=== PATIENT | male | born 1940 | race Caucasian/White ===

== ENCOUNTER 2016-10-08 11:59 | Outpatient (CLI) | payer OTHER ==
[2016-10-07 13:31] LABS: % IMMATURE GRANULOCYTES 6.6 % (0.0-1.1); ABSOLUTE IMMATURE GRANULOCYTES 0.66 10^3/uL (0-0.10); HEMATOCRIT 22.2 % (40.0-51.0); HEMOGLOBIN 7.9 g/dL (13.7-17.5); MEAN CELL HEMOGLOBIN 30.9 pg (27.9-34.1); MEAN CELL HEMOGLOBIN CONC. 35.6 g/dL (32.4-36.7); MEAN CELL VOLUME 86.7 fL (81.5-99.8); MEAN PLATELET VOLUME 9.8 fL (8.7-11.7); RED BLOOD CELL COUNT 2.56 10^6/uL (4.40-6.38)
[2016-10-07 13:55] LABS: ALANINE AMINOTRANSFERASE 42 IU/L (21-72); ALBUMIN 2.5 g/dL (3.5-5.0); ALKALINE PHOSPHATASE 94 IU/L (38-126); ANION GAP 9 mEq/L (8-16); ASPARTATE AMINOTRANSFERASE 20 IU/L (17-59); BILIRUBIN,TOTAL 0.4 mg/dL (0.1-1.4); CALCIUM 7.8 mg/dL (8.5-10.4); CARBON DIOXIDE 27 mEq/l (22-31); CHLORIDE 95 mEq/L (97-110); CREATININE 0.6 mg/dL (0.7-1.3); GLOMERULAR FILTRATION RATE > 60; GLUCOSE 180 mg/dL (70-100); POTASSIUM 4.2 mEq/L (3.5-5.2); SODIUM 131 mEq/L (134-144); TOTAL PROTEIN 4.9 g/dL (6.3-8.2)
[2016-10-08] MEDS ORDERED: ACETAMINOPHEN 325 MG TAB PO ONE (12:30)
== END 2016-10-08 16:15 | disposition home or self-care (01) ==
LOC: FOBOP 11:59
PROVIDERS: ATTEND Internal Medicine Hematology & Oncology
PROC: 30233N1 Transfusion of Nonautologous Red Blood Cells into Peripheral Vein, Percutaneous Approach (ICD-10-PCS; principal; 2016-10-08)
DX: C76.0 Malignant neoplasm of head, face and neck (principal)
CPT/HCPCS: 36430; P9016

== ENCOUNTER 2016-10-14 13:03 | Inpatient (IN) | payer OTHER ==
[2016-10-14] MEDS ORDERED: ONDANSETRON DISINTEGRATING 4 MG TAB PO PRN ×2 (18:29→18:36)
[2016-10-14] MEDS ORDERED: BIOTENE DRY MOUTH MOUTHWASH 237 ML BTL MM PRN (18:29)
[2016-10-14] MEDS ORDERED: PROCHLORPERAZINE MALEATE 10 MG TAB TUBE PRN (18:29)
[2016-10-14] MEDS ORDERED: VANCOMYCIN HCL/NORMAL SALINE 250 ML IV SCH (18:30)
[2016-10-14] MEDS ORDERED: ACETAMINOPHEN 325 MG TAB PO PRN (18:36)
[2016-10-14] MEDS ORDERED: VANCOMYCIN 1 GM/NS 250 ML BAG IV ONE (18:42)
[2016-10-14] MEDS ORDERED: IOPAMIDOL (ISOVUE-300) 100 ML BTL IV ONE (18:56)
[2016-10-14] MEDS ORDERED: OXYCODONE TUBE PRN (19:00)
[2016-10-14] MEDS: NS 1,000 ML IV SCH (19:35)
[2016-10-14 19:40] LABS: ADD DIFF? YES; ADD MORPH? YES; ATYPICAL LYMPHOCYTE FLAG 0 (0-99); FRAGMENT RBC FLAG 0 (0-99); LIPEMIA HEMOLYSIS FLAG 90 (0-99); MEAN CELL HEMOGLOBIN 29.8 pg (27.9-34.1); MEAN CELL HEMOGLOBIN CONCENTR. 35.5 g/dL (32.4-36.7); MEAN CELL VOLUME 83.8 fL (81.5-99.8); MEAN PLATELET VOLUME 11.5 fL (8.7-11.7); PLATELET CLUMPS FLAG 0 (0-99); RED BLOOD CELL COUNT 1.98 10^6/uL (4.40-6.38); RED CELL DISTRIBUTION WIDTH 13.3 % (11.5-15.2)
[2016-10-14 19:45] LABS: ALANINE AMINOTRANSFERASE 39 IU/L (21-72); ALBUMIN 2.5 g/dL (3.5-5.0); ALKALINE PHOSPHATASE 96 IU/L (38-126); ANION GAP 8 mEq/L (8-16); ASPARTATE AMINOTRANSFERASE 15 IU/L (17-59); BILIRUBIN,TOTAL 0.6 mg/dL (0.1-1.4); CALCIUM 7.8 mg/dL (8.5-10.4); CARBON DIOXIDE 28 mEq/l (22-31); CHLORIDE 95 mEq/L (97-110); CREATININE 0.7 mg/dL (0.7-1.3); GLOMERULAR FILTRATION RATE > 60; GLUCOSE 101 mg/dL (70-100); POTASSIUM 3.7 mEq/L (3.5-5.2); SODIUM 131 mEq/L (134-144)
[2016-10-14 19:51] LABS: LEFT SHIFT FLG 0 (0-99)
[2016-10-14 19:52] LABS: HEMATOCRIT 16.6 % (40.0-51.0); HEMOGLOBIN 5.9 g/dL (13.7-17.5)
[2016-10-14 19:53] LABS: PLATELET COUNT 22 10^3/uL (150-400)
--- NOTE | 2016-10-14 20:10 | GHP ---
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 He presents from oncology clinic today with neutropenia and general malaise. His oncology history is as follows: In June of 2016, he had an area of atypical mucosa that ultim ately was biopsied and came back as cancer. He had initial cancer surgery by Dr. Steve Miller at [facility]. Margins were thin, so he returned shortly thereafter for a 2nd surgery. He underwent c isplatin and Taxol chemotherapy, as well as radiation. On August 25, he presented to this hospital with neck swelling and was found to have an abscess. He was transferred to [facility], where he remained in the hospital for a month. He had 1 absce ss drainage surgery. He did not have positive blood cultures, but received prolonged antibiotics for what sounds like staph, Klebsiella and Pseudomonas. He was seen here in our clinic last week and had a wound swab which grew out Pseudomonas, Staph aureu s, and Klebsiella. When I speak with them, they noticed some increased sputum from his trach. He spends much of his day s in bed, but he is able to walk with a walker, sometimes without. He is getting tube feeds at night . He has not had diarrhea. He has had a bit of vomiting. I had a brief code status discussion with the family. He remains full code. They pre-contemplated t o intubate. Part of this is somewhat of a nonissue given his trach status, would be fairly easy to h ook him up to a ventilator. I did discuss the case with Dr. Jason Regalado, as well as Dr. Doris Doty. REVIEW OF SYSTEMS: Complete 10-point review of systems conducted, negative except as noted in the HP I. Head and neck cancer as above, hyperlipidemia. ALLERGIES: No known drug allergies. MEDICATIONS: Oxycodone, guaifenesin, simvastatin, scopolamine patch, prochlorperazine, ondansetron, Magic mouthwash, Biotene mouthwash, gabapentin, esomeprazole, and acyclovir. SOCIAL HISTORY: Lifelong no tobacco. Minimal alcohol. 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 FAMILY HISTORY: His daughter is healthy, at the bedside. PHYSICAL EXAMINATION: VITAL SIGNS: Blood pressure 124/50, pulse 102, breathing 14 times a minute, 9 8% on room air. Temp 36.8. GENERAL: Chronically ill-appearing. HEENT: Head and neck: He has jennifer martinez on the left side. He has 2 draining fistulas with muna in place. It is malodorous with a mild a mount of purulence. There is no fluctuance. His oropharynx is clear. His trach is clean, dry and i ntact. NECK: Supple. HEART: S1, S2, without tachycardia. LUNGS: Rhonchorous bilaterally. ABDOM EN: Soft, nontender, nondistended. LOWER EXTREMITIES: Without edema. Calves nontender. SKIN: Wi thout rash. NEUROLOGIC: Nonfocal. LABORATORY DATA: Today: Sodium 135, potassium 3.9, chloride 96, bicarb 22, BUN 30, creatinine 0.7, glucose 208. White count is 0.78, hematocrit 21.8, platelets are 30,000. His ANC is about 25. There is no imaging. I have reviewed his past records. ASSESSMENT/PLAN: This is a 76-year-old gentleman with head and neck cancer, complex neck anatomy, ne utropenia, purulent drainage. 1. Purulent drainage of his neck. This is concerning for recurrent infection. He has micro that joy s grown out Pseudomonas, MSSA, and Klebsiella. The Pseudomonas has an extended resistance pattern wh ere it is really only sensitive to aminoglycosides and levofloxacin. It is not clear if this represe nts colonization given his prolonged hospitalization report or versus infection. To that end, I will scan his neck. I will start him on meropenem and levofloxacin. ID will see him in the morning. Th is does not appear to be a surgical issue at this time; however, I will follow up on a CT. 2. Question pneumonia. The patient has rhonchorous breath sounds with increased sputum. Certainly, any pathogen will be covered by levofloxacin and meropenem. We will image his chest while we are im aging his neck. 3. Neutropenia. The patient will be on neutropenic precautions. He received G-CSF at the discretio n of Dr. Regalado. We will trend. 4. Anemia. This is new. We will transfuse him 1 unit of packed cells. 5. Prophylaxis. SCDs. Pharmacologic prophylaxis contraindicated by his thrombocytopenia. 6. Code: Full. 7. Cancer. There is a question of whether or not the patient would be appropriate for radiation the rapy tomorrow. It does not seem appropriate to me, but I will discuss this with my oncology colleagu malathi. 8. Disposition: Inpatient status. /[id number]/MODL
[2016-10-14 21:06] LABS: PLATELET ESTIMATE DECREASED (ADEQ)
[2016-10-14 21:07] LABS: HYPOCHROMIA 2+
[2016-10-14 21:09] LABS: ADD SCAN? NO
--- NOTE | 2016-10-14 21:16 | CT ---
CT Chest, With Contrast, at 2017 hours Indication: 76-year-old man with neutropenia and rhonchorous breathing. Technique: 5-mm thick collimated slices were obtained through the chest following uneventful adminis tration of 80 mL Isovue-300. Sagittal multiplanar reconstructions were performed of the thoracic spi ne. Dose reduction techniques were utilized. COMPARISON: CT chest dated October 03, 2012. Findings: A tracheostomy tube is well positioned at the suprasternal notch. No fluid collection or abscess around the tracheostomy tube. The airway is clear except for diffuse mild peribronchial thic kening throughout the mid and lower lung zones. No endobronchial lesion or central mucous plugging. The lungs are hypoventilated, with bibasilar subpleural reticular abnormality, which likely represent s a component of atelectasis. No confluent airspace consolidation or edema. The heart size is normal. No pericardial or pleural effusion. A right chest wall port is present, w ith the tip in the high right atrium. The inferior aspect of the superior vena cava is narrowed, how ever, there does not appear to be a stricture or thrombus along the course of the catheter. The thor acic aorta is normal caliber, with mild calcified plaque. 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 No lymphadenopathy or mass throughout the axilla, mediastinum, pulmonary cherelle, or imaged portion of [facility] upper abdomen. A gastrostomy tube is well situated within the lumen of the stomach. No fluid col lection or inflammation along the course of the gastrostomy tube. A benign 5-cm cyst emanating off [facility] superior pole of the left kidney is unchanged. The paraspinal soft tissue planes are normal. No evidence of diskitis. IMPRESSION: 1. No pneumonia or evidence of aspiration. 2. Bibasilar atelectasis and airways disease. No central mucous plugging. 3. Well-positioned tracheostomy tube. No abscess or inflammation along the tracheostomy tube. 4. No pleural effusion or empyema. Comment: The results were conveyed to Dr. Casey Osborn shortly after study completion. E:RH/amm
--- NOTE | 2016-10-14 21:20 | GHP ---
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 HISTORY OF PRESENT ILLNESS: The patient is a 76-year-old patient of Dr. Rashmi figueroa who was admitted today with neutropenic fever and purulent drainage from his left neck in the setting of undergoing treatment for alveolar ridge squamous cell carcinoma. The patient's history dates back to the fall when he was found to have a mass on the alveolar ridge and the posterior left mandibular molar area. In the time from when he was seen by ENT and scheduled for surgery, the mass increased in size. He was taken to the operating room by Dr. Rodriguez on and underwent resection of the left retromolar trigone, resection of the left posterior alveolus, resection of the left buccal mucosa, resection of the left floor of the mouth and also underwent a left partial upper 2/3 mandibulectomy. The tumor was much larger than initially appreciated. A number of teeth were pulled. Pathology showed a 3.2-cm moderately differentiated squamous cell carcinoma with extension to underlying bone and bone marrow space. Margins were negative but very close on the anterior and posterior aspects of the bone with definite bone marrow invasion. Multiple margins were quite close at 1 to 2 mm. Sixty-two lymph nodes were sampled and were negative. Because of the close margins, he was seen again by Dr. Martin Patel and a secondary surgery was performed on 07/25/2016. This entailed a left osteocutaneous fibula free flap, a right neck dissection, a radical resection of the left mandibular body with reconstruction of the mandibular segments with a transosteal bone plate and 4 dental extractions. There was also an incision and drainage of a left facial abscess. Pathology from this procedure showed squamous cell carcinoma in the soft tissue of the neck and microscopic sulci were identified in 6 out of the 19 submitted areas. Additional squamous cell carcinoma was noted in the mandible diffusely involving the marrow space. Final margins were felt to be negative. Three additional lymph nodes were sampled and were negative. He had a feeding tube placed. More recently, the patient had a prolonged hospitalization at [facility]. He had developed rapid increasing swelling over the neck and there was concern of an abscess. This area was explored again by Dr. Rodriguez. However, it was felt that the swelling was primarily due to recurrent and progressive tumor and deep biopsies were positive for squamous cell carcinoma. He received one cycle of carboplatin and Taxol in early August and this was complicated by neutropenic fever. He was growing Pseudomonas from his tracheostomy. He received one dose of weekly carboplatin and Taxol on 09/18/2016 and tolerated that relatively well. However, CT scan again appeared to identify that the tumor was increasing in size. He had a tracheostomy placed as well as a port. More recently, the patient was started on palliative radiation with concurrent weekly cisplatin. He has received 9 radiation treatments and 2 doses of weekly cisplatin. He was noted to have purulent drainage from his REX site at the angle just inferior to the left ear and also developed a spontaneous purulent drainage from the left lower jaw. He was seen in the wound clinic yesterday by Dr. Collins and has been having a wound care nurse out to the house regularly. He has been requiring intermittent transfusions. Culture of the tracheostomy secretions from the grew Pseudomonas and methicillin-sensitive staph aureus. Today in the office, the patient was febrile at 99.1. White blood cell count was 0.78 with a hematocrit of 21.8 and a platelet count of 30,000. Metabolic panel was notable for albumin of 3, creatinine of 0.7, glucose of 208. O2 saturation was 88%. The patient is admitted for further evaluation of neutropenic fever in the setting of purulent drainage from his operative sites. 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 He is a nonsmoker. FAMILY HISTORY: Noncontributory. REVIEW OF SYSTEMS: A 10-point review of systems is negative other than HPI. The patient denies any pain and currently takes oxycodone 5 mg twice a day. PHYSICAL EXAMINATION: GENERAL: He is an elderly, fairly comfortable appearing man lying in bed with his eyes closed. HEENT: He has an obvious deformity of his left jaw. Pupils are equal. Sclerae anicteric. He has a tracheostomy with purulent drainage. The left mandible is firm and indurated, slightly erythematous. There is a wick in a draining site below the ear and in the anterior aspect of the jaw. LUNGS: Clear anteriorly. HEART: Regular rate. ABDOMEN: Soft, nontender with G-tube. There is some mild erythema around the G -tube site but no obvious infection. No cervical adenopathy or axillary adenopathy or supraclavicular adenopathy. LABORATORY DATA: See HPI. 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 He has undergone extensive surgical resection, with tumor progression in a short period of time. He is currently undergoing concurrent radiation with cisplatin and is now being admitted with neutropenic fever and increasing drainage from wound sites at the left jaw. Chemotherapy will be held and will start the patient on Neupogen. Will discuss whether or not to continue with radiation tomorrow morning with Dr. Pak. Infectious Disease will be seeing the patient in the consultation. He is getting a CT scan of the neck and chest. The Pseudomonas may represent just colonization of the tracheostomy but could also be contributing to infection either in the jaw and/or possibly pneumonia. We will continue to follow along with you. /[id number]/MODL MTDD
[2016-10-14] MEDS ORDERED: ACETAMINOPHEN 500 MG TAB TUBE ONE (21:45)
[2016-10-14] MEDS: MEROPENEM 1 GM in NS 100 ML IV SCH (21:55)
--- NOTE | 2016-10-14 21:56 | CT ---
CT Neck, With IV Contrast, at 2017 hours INDICATION: Neutropenia and chronic draining wound from neck. Known head and neck cancer, with júnior nstruction of the mandible. TECHNIQUE: The neck was scanned with 2.5-mm thick helically acquired slices following uneventful int ravenous administration of 80 mL of Isovue-300. The data was reconstructed in soft tissue and bone a lgorithm in the axial and coronal planes. Dose reduction techniques were utilized. COMPARISON: CT of the neck, with contrast, dated August 25, 2016. FINDINGS: A deep ulcer posterior to the left angle of the mandible communicates with a fluid and gas filled rim-enhancing fluid collection, which tracks anteriorly and medially along the deep inferomed ial aspect of the reconstructed body of the left side of the mandible. The fluid collection, best de monstrated on images #82 through 91, measures 4 cm medial to lateral x 1 x 1 cm in diameter. A second visible sinus tract enters the skin along the left body of the mandible (image #139 of serie s #13) and tracks medially deep to the plate and screws and then communicates to the oropharynx as a small gas-filled tract evident on images #109 through 125 of series #13. The plate along the left mandibular body is loosening and a gap between the plate and mandible measur es between 1 and 4 mm. The gas-filled sinus tract courses deep to the plate. The angle of the partha ble has undergone permeative destruction since August 2016 and a screw in the angle of the mandible (image #109 of series #13) is not seated in bone. The left masseter muscle and medial pterygoid muscle are markedly asymmetrically enlarged relative to the contralateral muscle groups. It is unclear whether this represents infiltrative neoplasm or jennifer ma and inflammation secondary to an underlying infectious process. The lobulated mass along the supe rficial and deep aspect of the left mandibular body is no longer evident and may have been surgically resected. The midline and right side of the mandibular reconstruction is otherwise well seated. Extensive kecia a is present superficial and deep to the platysma muscle in the subgenu and submandibular space. The parapharyngeal spaces are relatively well preserved. No deep abscess or parapharyngeal abscess. The epiglottis is normal. The internal jugular veins are patent. The imaged portion of the brain is normal, with no enhancing intracranial lesion. IMPRESSION: 1. Abscess versus liquefactive necrosis along the undersurface of the left body of the mandible comm unicates with an ulcer along the posterior surface of the left angle of the mandible. 2. A second sinus tract communicates between the oropharynx and cutaneous surface along the left bod y of the mandible. The cutaneous tract is filled with gas and runs deep to the hardware along the le ft mandibular body. 3. Osteomyelitis versus malignant destruction of the angle of the mandible. 4. Breakdown and loosening of the hardware along the left mandibular body and ramus. Comment: Results were discussed with Dr. Casey Osborn at 9:15 p.m. on October 14, 2016.
[2016-10-14] MEDS: GABAPENTIN 100 MG CAP TUBE SCH (22:03)
[2016-10-14] MEDS: FILGRASTIM-SNDZ 300 MCG/0.5 ML SYR SC SCH (22:03)
[2016-10-14] MEDS: ACYCLOVIR 200 MG CAP TUBE SCH (22:03)
[2016-10-14] MEDS: GUAIFENESIN/DM 10 ML UDCUP TUBE SCH (22:03)
[2016-10-14] MEDS ORDERED: [UNRECOGNIZED DRUG - OTHER] MM PRN (22:45)
[2016-10-14] MEDS: oxyCODONE ORAL SOLUTION 10 MG/0.5 ML UDSYR TUBE PRN (22:52)
[2016-10-14 23:10] LABS: SCAN POSITIVE
[2016-10-15] MEDS: MEROPENEM 1 GM in NS 100 ML IV SCH ×3 (05:35→20:22)
[2016-10-15 06:10] LABS: ATYPICAL LYMPHOCYTE FLAG 0 (0-99); FRAGMENT RBC FLAG 0 (0-99); LIPEMIA HEMOLYSIS FLAG 90 (0-99); MEAN CELL HEMOGLOBIN 31.6 pg (27.9-34.1); MEAN CELL HEMOGLOBIN CONCENTR. 36.6 g/dL (32.4-36.7); MEAN CELL VOLUME 86.3 fL (81.5-99.8); MEAN PLATELET VOLUME 10.6 fL (8.7-11.7); PLATELET CLUMPS FLAG 0 (0-99); RED CELL DISTRIBUTION WIDTH 13.2 % (11.5-15.2)
[2016-10-15 06:17] LABS: ADD MORPH? NO; INR 1.12 (0.83-1.16); LEFT SHIFT FLG 130 (0-99); PROTIME(PATIENT) 14.3 SEC (12.0-15.0)
[2016-10-15 06:22] LABS: HEMATOCRIT 16.4 % (40.0-51.0); PLATELET COUNT 17 10^3/uL (150-400)
[2016-10-15 06:26] LABS: ADD SCAN? NO
[2016-10-15 06:27] LABS: ADD DIFF? NO
[2016-10-15 06:30] LABS: ANION GAP 5 mEq/L (8-16); CALCIUM 7.7 mg/dL (8.5-10.4); CARBON DIOXIDE 28 mEq/l (22-31); CHLORIDE 100 mEq/L (97-110); CREATININE 0.7 mg/dL (0.7-1.3); GLOMERULAR FILTRATION RATE > 60; GLUCOSE 158 mg/dL (70-100); POTASSIUM 3.6 mEq/L (3.5-5.2); SODIUM 133 mEq/L (134-144)
[2016-10-15 07:51] LABS: PLATELET ESTIMATE DECREASED (ADEQ)
[2016-10-15] MEDS: ONDANSETRON 4 MG/2 ML VIAL IVP PRN (08:40)
[2016-10-15] MEDS: ACYCLOVIR 200 MG CAP TUBE SCH ×2 (08:43→20:22)
[2016-10-15] MEDS: GABAPENTIN 100 MG CAP TUBE SCH ×2 (08:43→20:22)
[2016-10-15] MEDS: GUAIFENESIN/DM 10 ML UDCUP TUBE SCH ×2 (08:43→20:22)
[2016-10-15] MEDS: NS 1,000 ML IV SCH (15:04)
[2016-10-15] MEDS: FILGRASTIM-SNDZ 300 MCG/0.5 ML SYR SC SCH (15:08)
--- NOTE | 2016-10-15 16:00 | SOAPPROG ---
SOAP Progress Note Assessment/Plan: Assessment: Was referred to me as an outpatient for wound care. [place] that he was admitted. I reviewed the CT scan of his neck and chest. This complicated situation will be best handled by an ENT. I discussed the imaging findings with his family. Local wound care until definitive plan can be made regarding osteomyelitis versus progressive cancer Plan: 10/15/16 15:58 Objective: Vital Signs Temp Pulse Resp BP Pulse Ox 36.7 C 91 22 H 97/58 L 100 10/15/16 11:05 10/15/16 11:05 10/15/16 11:05 10/15/16 11:05 10/15/16 11:05 Laboratory Results 10/15/16 06:00 10/15/16 06:00 10/14/16 10/15/16 10/16/16 05:59 05:59 05:59 Intake Total 1440 1140 Output Total 1150 300 Balance 290 840 PT 14.3 SEC (12.0-15.0) 10/15/16 06:00 INR 1.12 (0.83-1.16) 10/15/16 06:00 ICD10 Worksheet Patient Problems: Problems Problem Status Diagnosed Alveolar adenocarcinoma Acute - ICD10 Problem Qualifiers (1) Alveolar adenocarcinoma
--- NOTE | 2016-10-15 16:32 | WOCRNPDOC ---
NESTOR Advanced Assessment Note - Skin Integrity Problem, Advanced Assess Left Lower Jaw Surgical Wound/Incision Dressing Type: Gauze, Hydrofera Blue (tunnel packing) Dressing Description: Intact, Shadowed Exudate Amount: Moderate Exudate Color: Yellow Exudate Characteristic(s): Serous Integumentary Issue Intervention: Dressing Changed Elba Wound Tissue: Erythema Elba Wound Swelling: Mild Wound Bed Color: Red (able to visualize entrance to wounds only, where smooth tissue is present.) Wound Bed Constitution: Tunneling Site Odor: Moderate Site Measurement - Head-to-Toe Length X Width X Depth (cm): Anterior L jaw: 0.3cm x 0.3cmx 3.5cm (tunnel); posterior/distal L jaw: [id number] Skin Integrity Problem Comment: Two, discrete tunneling wounds noted to patient' s L jaw. I removed the Hydrofera Blue tunnel packing, which was applied on Thursday according to patient's [id number]. The packing in the anterior wound was white, indicating it needs to be changed. In the distal/posterior aspect, most of the dressing remained blue. The gauze covering both wounds was shadowed w/ [id number], yellow exudate, with a strong bacterial odor. Erythema noted throughout the L side of patient's face, but it is difficult to discern if this is the result on an infection to the tissues or the result of damage from radiation. Reapplied Hydrofera Blue tunnel dressing, and covered both sites w/ small Allevyn dressings. Coccyx Pressure Injury Dressing Type: Open to Air Exudate Amount: None Exudate Characteristic(s): None Integumentary Issue Intervention: Dressing Applied Elba Wound Tissue: Blanching, Erythema, Intact, Dry Elba Wound Swelling: None Wound Bed Color: Red Wound Bed Constitution: Smooth Tissue Site Odor: None Site Measurement - Head-to-Toe Length X Width X Depth (cm): 0.4cmx0.5cmx0.1cm Pressure Injury Stage: Stage 2 Pressure Injury Present on Admit: Yes Skin Integrity Problem Comment: Small circular area of partial-thickness tissue loss, just distal and to the right of coccyx, consistent in appearance with a stageII pressure injury. Elba-wound tissue presently intact and blanching. Patient reports that site is tender and painful. Allevyn Life sacral/coccyx dressing and wound gel applied. Accu-max mattress and pump ordered, turns q. 2 initiated.
[2016-10-15] MEDS ORDERED: PANTOPRAZOLE SODIUM 40 MG TAB PO SCH (18:00)
--- NOTE | 2016-10-15 18:02 | HOSPPROG ---
Hospitalist Progress Note Assessment/Plan: DIAGNOSIS: -New bony and soft tissue abnormalities at the mandible and neck as described below in radiology. These are of uncertain nature or etiology, with suspicion for either infection, tissue necrosis, and or tumor. However as his mean tumor is shrinking tumor seems less likely. -abnormality of left mandible, either necrotic, osteomyelitis, or tumor -soft tissue abnormalities in the area of the mandible which could be necrosis with phlegmon, abscess, or other cause -soft tissue sinus tract from the oropharynx to the skin of the neck below the mandible on the left PLANS: ENT consult I have reviewed the patient's case in detail with Dr. Doris Doty and Whitney Cedeño Will continue current antibiotics and follow cultures at this time MRI will not likely be helpful. We may need to perform biopsies or aspirations to come to better diagnostic conclusions. Will wait for ear nose throat evaluation SUBJECTIVE: Patient is having only modest pain. He is not short of breath and not having chills or sweats OBJECTIVE Vitals reviewed: No fevers, vitals stable Exam: alert oriented Tracheostomy site looks okay There is a open area with draining purulent material from the lateral aspect of the left neck anteriorly corresponding to his sinus tract There is some swelling and redness of the skin over his chin and left mandibular area, otherwise skin warm dry color ok resps not labored lungs with diffuse rhonchi heart regular abd soft nondistended nontender, bowel sounds present limbs warm, no edema iv site ok Objective: Vital Signs Temp Pulse Resp BP Pulse Ox 36.7 C 91 22 H 97/58 L 100 10/15/16 11:05 10/15/16 11:05 10/15/16 11:05 10/15/16 11:05 10/15/16 11:05 Laboratory Results 10/15/16 06:00 10/15/16 06:00 10/14/16 10/15/16 10/16/16 06:59 06:59 06:59 Intake Total 1440 1140 Output Total 1150 300 Balance 290 840 PT 14.3 SEC (12.0-15.0) 10/15/16 06:00 INR 1.12 (0.83-1.16) 10/15/16 06:00 ICD10 Worksheet Patient Problems: Problems Problem Status Diagnosed Alveolar adenocarcinoma Acute
[2016-10-15] MEDS: NEXIUM 22.3 MG TUBE SCH (18:20)
[2016-10-15] MEDS: FLUCONAZOLE 100 MG TAB TUBE SCH (18:20)
--- NOTE | 2016-10-15 18:53 | SOAPPROG ---
SOAP Progress Note Assessment/Plan: A/P: * H&N cancer: aggressive disease. CT shows evidence of response in tumor. Continuing with RT (no chemo due to pancytopenia). Poor prognosis overall. * ?abscess vs. necrosis: plan for drainage in IR tomorrow. Appreciate ID and ENT. * Pancytopenia: likely due to chemo, RT. Receiving G-CSF. Transfusing. He will need plts prior to procedure tomorrow. * Supportive care: pt has been reluctant to discuss palliative care. Lengthy discussions with ID, ENT (who spoke with Dr. Rodriguez), and hospitalist. 10/15/16 18:55 Subjective: S: Pain control adequate. Swallowing difficulty. O: VS reviewed. Gen: chronically ill appearing, A&O. HEENT: facial erythema (?radiation changes vs. cellulitis). Lungs: trach, rhonchi. Abd: soft, NT. Laboratory Tests 10/15/16 06:00 WBC 0.20 L* Hgb 6.0 L Plt Count 17 L* Absolute Neuts (auto) 0.10 L Objective: Vital Signs Temp Pulse Resp BP Pulse Ox 36.7 C 93 18 102/56 L 97 10/15/16 18:32 10/15/16 18:32 10/15/16 18:32 10/15/16 18:32 10/15/16 18:32 Laboratory Results 10/15/16 06:00 10/15/16 06:00 10/14/16 10/15/16 10/16/16 05:59 05:59 05:59 Intake Total 1440 1765 Output Total 1150 925 Balance 290 840 PT 14.3 SEC (12.0-15.0) 10/15/16 06:00 INR 1.12 (0.83-1.16) 10/15/16 06:00 ICD10 Worksheet Patient Problems: Problems Problem Status Diagnosed Alveolar adenocarcinoma Acute
--- NOTE | 2016-10-15 19:44 | GCON ---
[f rep st] CONSULTATION INFECTIOUS DISEASE CONSULTATION DATE OF CONSULTATION: 10/15/2016 REASON FOR CONSULTATION: Positive culture for Pseudomonas in patient with neutropenic fever. 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 Patient has undergone multiple surgical extensive surgical resections with imaging suggestive of abscess at times, but intraoperative cultures in June, July, and August all were negative based on my review from outside records. Patient recently had a prolonged hospitalization at [facility] in August and developed rapidly increasing neck swelling, which was initially thought to be an abscess but subsequently found to be cancer. At that time, patient was decided to undergo palliative chemotherapy with cisplatin and Taxol , and radiation. Patient had a tracheostomy and port placement around this time as well. Apparently, patient has developed some drainage from both his REX sites, which was the more posterior tract and more from the front tract as well, which the anterior tract is new and developed spontaneously. Wound Care was managing these tracts, but patient was seen in the Oncology office 10/15/2016 and was febrile to 99. Subsequently, patient was found to have significant neutropenia and was admitted to the hospital for further evaluation. Of note, patient's wound tracts have previously been cultured 10/07/2016, which showed a fairly resistant Pseudomonas, resistant to cefepime, ceftazidime, intermediate to meropenem and resistant to Zosyn, susceptible to aminoglycosides and levofloxacin. In addition, 1 showed Staph aureus and a fairly susceptible Klebsiella. In addition, repeat tract swab was performed on 10/13/2016 which also confirmed Pseudomonas, but this organism was more susceptible only intermediate to ceftazidime. Based on these findings and underlying fever, patient underwent a CT scan on admission that showed liquefaction necrosis on the undersurface of the left body of the mandible that is approximately 4 x 1 x 1 cm and 1 of the tracts is possibly corresponding to this. Also, there is destruction of the left angle of the mandible that is new compared to past imaging. Nonetheless, left mandibular mass was decreased since August 29. I personally reviewed these scans with Radiology. PAST MEDICAL HISTORY: Peripheral neuropathy. PAST SURGICAL HISTORY: Related to his squamous cell carcinoma of the alveolar ridge. 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 Nonsmoker. FAMILY HISTORY: Noncontributory. REVIEW OF SYSTEMS: A complete 10-point review of systems was performed and is negative, except as mentioned in the HPI. Denies any diarrhea, significant amount of weight loss, and denies pain in his face or neck. ALLERGIES: NKDA. MEDICATIONS: Levofloxacin 750 mg daily started 10/14/2016, meropenem 1 g IV q.8 started 10/14/2016. He is also on acyclovir 200 mg twice daily, filgrastim 300 mcg subcu daily, Neurontin, Robitussin, Zofran, oxycodone, scopolamine, and IV fluids. PHYSICAL EXAM: VITAL SIGNS: Blood pressure 102/56, heart rate is 93, respiratory rate 18, saturation 97% on trach collar humidified. Patient's current temperature is 36.7. GENERAL: This is a nontoxic-appearing male sitting in bed, in no acute distress. HEENT: Obvious defect in his left face with 2 sinus tracts with Hydrofera. The left side of his face has some red induration, but not clearly cellulitic, nontender to palpation. Intraoral: Patient has obvious extraction of all his teeth on the left side with a white, fluffy exudate on his lower jaw and under his tongue consistent with thrush. NECK: Trach was in place. CARDIOVASCULAR: Regular rate and rhythm. No murmurs. CHEST: Patient had coarse upper respiratory sounds throughout. ABDOMEN: Soft, nontender. Patient had a feeding tube in place with some redness around the insertion site and crusting, not clearly cellulitic. EXTREMITIES: No clubbing, cyanosis, or edema. : No Woody. NEUROLOGIC: He is alert and oriented x4, moving all 4 extremities equally. We communicated by yes/no questions and patient writing on a piece of paper. LABORATORY: White count 0.2, hematocrit 16, platelets of 17, 50% neutrophils, 40% lymphocytes with an ANC of 100. INR 1.1. Creatinine 0.7. LFTs on admission were okay with an albumin of 2.5. IMAGING: As per HPI. In addition, a chest CT was performed which showed no pneumonia, but bibasilar atelectasis. Tracheostomy site was evaluated with no abscess or inflammation around it. Blood cultures were obtained on admission and pending. 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 Nonetheless, patient with low-grade temperature and positive cultures for fairly resistant Pseudomonas with imaging that could be consistent with infection. Therefore, would continue antibiotic therapy until further evaluation. 1. Neutropenia and low grade fever: patient at risk for rapidly progressive infection with ANC essentially zero. Antibiotic as below 2. Left abscess versus liquefaction necrosis on the left body of the mandible and destruction of the left angle of the mandible, osteomyelitis versus malignant destruction: Discussed with IR. Plan to try to aspirate the abscess via 1 of the tracts tomorrow after cleaning the tract and putting a sterile tube to obtain a hopefully sterile culture. In the interim, will continue Levaquin and meropenem. 3. Thrush: Would start patient on p.o. fluconazole. 4. Possible infection due to Pseudomonas with 2 different isolates susceptibilities: This is not unusual as there can be mixed populations of Pseudomonas. In this immunocompromised host, would direct our therapy to the more resistant organisms. While awaiting evaluation, concern for high level of organisms therefore, would continue 2 agents directed at Pseudomonas based on general recommendations for immunocompromised host with a high burden of disease. Time was 75 minutes, with greater than 50% time spent with education and counseling of the patient and family regarding that findings could be cancer versus infection, reasons for treating the Pseudomonas with meropenem and Levaquin, critical nature of infection with neutropenia, and that the Pseudomonas may be a colonizer. In addition, significant coordination of care with Dr. Cedeño, Dr. New, and Dr. Saavedra, as well as by Interventional Radiology , Dr. Sol. Thank you for this consultation. Will continue to follow along with you. /[id number]/MODL MTDD
--- NOTE | 2016-10-15 20:34 | GCON ---
[f rep st] CONSULTATION OTOLARYNGOLOGY CONSULTATION DATE OF CONSULTATION: 10/15/2016 REFERRING PHYSICIAN: Casey Osborn MD REASON FOR CONSULTATION: Head and neck cancer, question mandibular abscess. HISTORY OF PRESENT ILLNESS: The patient is a 76-year-old male patient primarily of Dr. 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 He presented last fall with diffuse leukoplakia and erythroplakia that progressed rapidl y over a four-week period without a stacey retromolar trigone which tripled in size within a one-week period. He underwent an initial resection by Dr. Rodriguez with very close margins and then a re-resec tion that included much of the floor of mouth, mandible, and alveolus, as well as buccal mucosa, and a fibular free-flap reconstruction. There is definite bone marrow invasion and soft tissue involveme nt in the neck at the secondary procedure despite a previous neck dissection with 63 lymph nodes bein g negative. He has since then attempted to have aggressive palliative management with chemotherapy a nd radiation. He had a one-month hospitalization at [place] for a question of an abscess. However, t his was determined to be necrotic cancer that was biopsy-proven with negative cultures at the time. He was positive for Pseudomonas in his tracheostomy. Recently, he has been on weekly cisplatin with palliative radiation and yesterday developed a neutropenic fever and was admitted to the hospital for management. PAST MEDICAL HISTORY: Includes rheumatoid arthritis. 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 . REVIEW OF SYSTEMS: A 10-point review of systems was otherwise negative, with the exception of some d ysphasia as expected with his head and neck condition. PHYSICAL EXAMINATION: GENERAL: He is supine, but awake, alert, and oriented in his hospital bed. P ULMONARY: He has a stable tracheostomy with some whitish, slightly purulent secretions on occasion w ith cough. HEENT: His left mandible is erythematous and firm with ulceration and fistula tracking d ue to the persistent disease. External ears are within normal limits. Anterior nasal rhinoscopy is unremarkable. Oral cavity exam revealed a healthy, intact flap without palpable abscess or any obvio us drainage intraorally. However, this is not deeply probed for the fistula. IMPRESSION: 1. Unresectable, persistent squamous cell carcinoma of the mandible. 2. Pseudomonas from the tracheostomy. 3. Neutropenic fever. RECOMMENDATIONS: I had a discussion with Dr. Rodriguez via phone regarding his condition. Given his p latelet count being as lesion as it is, and that this is in all likelihood cancer given the prior his tory, with an abscess-like picture and development of fistula tracts after I and D due to persistent disease, I would not recommend any aggressive surgical intervention. Dr. Rodriguez agrees with this, a s does the patient, as he is desiring a more minimal approach if possible. I discussed with the [facility] ctious Disease budget consultant that it may be reasonable to consider an Interventional Radiology fine-need le aspiration of the fluid, both for cytology and possible for culture, as this may help direct and g uide antibiotic therapy for him. At this time, the patient declines any aggressive surgery. However, if this were to change, I would recommend that he be transferred back to [place] to Dr. Rodriguez's care, given the complex nature of hi s prior surgeries. /[id number]/MODL
[2016-10-15] MEDS ORDERED: TEMAZEPAM 15 MG CAP PO PRN (23:38)
[2016-10-15] MEDS: TEMAZEPAM 15 MG CAP TUBE PRN (23:54)
[2016-10-16] MEDS: NS 1,000 ML IV SCH (01:56)
[2016-10-16 05:03] LABS: ADD MORPH? NO; ATYPICAL LYMPHOCYTE FLAG 40 (0-99); FRAGMENT RBC FLAG 0 (0-99); HEMATOCRIT 19.8 % (40.0-51.0); HEMOGLOBIN 7.1 g/dL (13.7-17.5); LIPEMIA HEMOLYSIS FLAG 90 (0-99); MEAN CELL HEMOGLOBIN 30.5 pg (27.9-34.1); MEAN CELL HEMOGLOBIN CONCENTR. 35.9 g/dL (32.4-36.7); MEAN PLATELET VOLUME 11.7 fL (8.7-11.7); PLATELET CLUMPS FLAG 10 (0-99); RED BLOOD CELL COUNT 2.33 10^6/uL (4.40-6.38); RED CELL DISTRIBUTION WIDTH 13.3 % (11.5-15.2)
[2016-10-16 05:07] LABS: LEFT SHIFT FLG 160 (0-99)
[2016-10-16] MEDS: MEROPENEM 1 GM in NS 100 ML IV SCH ×3 (05:08→20:27)
[2016-10-16 05:09] LABS: PLATELET COUNT 14 10^3/uL (150-400)
[2016-10-16 05:10] LABS: ADD DIFF? NO; ADD SCAN? NO
[2016-10-16 05:18] LABS: ANION GAP 5 mEq/L (8-16); CALCIUM 7.4 mg/dL (8.5-10.4); CARBON DIOXIDE 25 mEq/l (22-31); CHLORIDE 102 mEq/L (97-110); CREATININE 0.6 mg/dL (0.7-1.3); GLOMERULAR FILTRATION RATE > 60; GLUCOSE 147 mg/dL (70-100); POTASSIUM 3.5 mEq/L (3.5-5.2); SODIUM 132 mEq/L (134-144)
[2016-10-16 05:25] LABS: PLATELET ESTIMATE DECREASED (ADEQ)
[2016-10-16] MEDS: FLUCONAZOLE 100 MG TAB TUBE SCH (09:04)
[2016-10-16] MEDS: GABAPENTIN 100 MG CAP TUBE SCH ×2 (09:04→20:13)
[2016-10-16] MEDS: ACYCLOVIR 200 MG CAP TUBE SCH ×2 (09:04→20:13)
[2016-10-16] MEDS: GUAIFENESIN/DM 10 ML UDCUP TUBE SCH ×2 (09:05→20:13)
--- NOTE | 2016-10-16 11:13 | HOSPPROG ---
Hospitalist Progress Note Assessment/Plan: DIAGNOSIS: -New bony and soft tissue abnormalities at the mandible and neck as described below in radiology. These are of uncertain nature or etiology, with suspicion for either infection, tissue necrosis, and or tumor. However as his mean tumor is shrinking tumor seems less likely. -abnormality of left mandible, either necrotic, osteomyelitis, or tumor -soft tissue abnormalities in the area of the mandible which could be necrosis with phlegmon, abscess, or other cause -soft tissue sinus tract from the oropharynx to the skin of the neck below the mandible on the left PLANS: I have reviewed the patient's case in detail with Dr. Venkatesh Kramer and Whitney Cedeño Will continue current antibiotics and follow cultures at this time I have ordered 1 unit of platelet transfusion today and will recheck the platelet count after that He is scheduled to have tissue sampling and biopsy in interventional radiology which will likely happen at the end of the day He is scheduled for radiation therapy again today Continue his tube feeds DVT prophylaxis mechanical due to his severe thrombocytopenia SUBJECTIVE: No change in pain or other symptoms overnight. Some sweats The suture at his PEG tube site has loosened overnight but he is still getting his tube feeds without difficulty OBJECTIVE Vitals reviewed: T-max 37.5degrees, otherwise stable vitals Exam: alert oriented Tracheostomy site looks okay Left submandibular sinus tract unchanged There is still some swelling but less redness of the skin over his chin and left mandibular area, otherwise skin warm dry color ok resps not labored lungs with diffuse but less rhonchi today heart regular abd soft nondistended nontender, bowel sounds present; peg tube site looks good and he is receiving tube feedings without any leak limbs warm, no edema iv site ok Laboratory data: Platelet count is down to 14,000, hemoglobin up a bit at 7 after transfusion, neutrophil count still very low at 60 metabolic panel is good Objective: Vital Signs Temp Pulse Resp BP Pulse Ox 37.5 C 96 20 107/68 98 10/16/16 08:00 10/16/16 09:45 10/16/16 08:00 10/16/16 08:00 10/16/16 09:45 Laboratory Results 10/16/16 04:40 10/16/16 04:40 10/15/16 10/16/16 10/17/16 06:59 06:59 06:59 Intake Total 1440 4215 Output Total 1150 1925 200 Balance 290 2290 -200 PT 14.3 SEC (12.0-15.0) 10/15/16 06:00 INR 1.12 (0.83-1.16) 10/15/16 06:00 ICD10 Worksheet Patient Problems: Problems Problem Status Diagnosed Alveolar adenocarcinoma Acute
[2016-10-16] MEDS ORDERED: NA BICARBONATE 50 MEQ/50 ML VIAL ONE (12:03)
[2016-10-16] MEDS ORDERED: LIDOCAINE 1% 30 ML SDV ONE (12:03)
[2016-10-16] MEDS: SCOPOLAMINE HYDROBROMIDE 1.5 MG PATCH TD SCH (12:15)
--- NOTE | 2016-10-16 13:22 | SOAPPROG ---
SOAP Progress Note Assessment/Plan: Assessment: Assessment/Plan: A/P: * H&N cancer: aggressive disease. CT shows evidence of response in tumor. Continuing with RT, but skipped today due to being in IR and some issues with trach. Will resume tomorrow. Discussed with Dr. Pak. Poor prognosis overall. * ?abscess vs. necrosis: Spoke with Dr. Sol. Aspirate showed extensive necrotic tissue. No pus, but wouldn't expect that with WBC of .25. Cultures sent. Appreciate ID and ENT. * Pancytopenia: likely due to chemo, RT. Receiving G-CSF. Transfusing. Receiving platelets today. * Supportive care: pt has been reluctant to discuss palliative care. Objective: Vital Signs Temp Pulse Resp BP Pulse Ox 37.0 C 91 20 128/70 H 99 10/16/16 11:58 10/16/16 11:58 10/16/16 11:58 10/16/16 11:58 10/16/16 11:58 Laboratory Results 10/16/16 04:40 10/16/16 04:40 10/15/16 10/16/16 10/17/16 05:59 05:59 05:59 Intake Total 1440 4215 Output Total 1150 1925 550 Balance 290 2290 -550 PT 14.3 SEC (12.0-15.0) 10/15/16 06:00 INR 1.12 (0.83-1.16) 10/15/16 06:00 ICD10 Worksheet Patient Problems: Problems Problem Status Diagnosed Alveolar adenocarcinoma Acute
[2016-10-16] MEDS: FILGRASTIM-SNDZ 300 MCG/0.5 ML SYR SC SCH (15:49)
--- NOTE | 2016-10-16 17:17 | PCMIDPN ---
Assessment/Plan: Assessment: Head neck cancer patient with collections that are expanding in the left mandibular region and upper neck region. He is status post multiple surgeries for removal/debulking of squamous cell carcinoma. He has had drainage of thick purulence from 2 sinus tract on the left side. These will be explored today under ultrasound by interventional Radiology with the intent of further drainage of any collections found. Samples will be sent for cytology and micro. In the meantime we will continue coverage with meropenem, Levaquin and fluconazole. Plan: 1. Continue coverage with meropenem, Levaquin and fluconazole. 2. Follow results of interventional radiology procedure. 3. Follow-up culture results and pathology results. Subjective: Patient is resting comfortably in his hospital bed. Son is in the room. [id number] called who is a physician and we were able to conference her in on the discussion. Patient is nonverbal. No fevers or chills. Continues to have drainage from left sided sinus tracts under the mandibular edge. Objective: Meropenem #2 Levaquin #3 Fluconazole #2 Vital Signs Temp Pulse Resp BP Pulse Ox 37.0 C 95 20 115/58 L 92 10/16/16 11:58 10/16/16 15:40 10/16/16 15:40 10/16/16 15:40 10/16/16 15:40 Laboratory Results 10/16/16 04:40 10/16/16 04:40 10/15/16 10/16/16 10/17/16 05:59 05:59 05:59 Intake Total 1440 4215 Output Total 1150 1925 550 Balance 290 2290 -550 - Physical Exam General Appearance: WD/WN, alert, no apparent distress, non-toxic, other ( Chronically ill-appearing) EENT: No normal ENT inspection (Postoperative effects on the left mandibular aspect. Chronic swelling in the left neck near the angle of the mandible. Seropurulent discharge from 2 sinus tracts.), No pharynx normal Respiratory: lungs clear, normal breath sounds, No respiratory distress Cardiac/Chest: regular rate, rhythm, No tachycardia Skin: normal color, warm/dry, No rash Neuro/Psych: alert, normal mood/affect, oriented x 3 ICD10 Worksheet Patient Problems: Problems Problem Status Diagnosed Alveolar adenocarcinoma Acute
[2016-10-16] MEDS: NEXIUM 22.3 MG TUBE SCH (20:12)
[2016-10-16] MEDS: oxyCODONE ORAL SOLUTION 10 MG/0.5 ML UDSYR TUBE PRN (20:13)
[2016-10-17] MEDS: TEMAZEPAM 15 MG CAP TUBE PRN (00:48)
[2016-10-17] MEDS: MEROPENEM 1 GM in NS 100 ML IV SCH ×3 (04:51→21:55)
[2016-10-17 05:10] LABS: ATYPICAL LYMPHOCYTE FLAG 90 (0-99); FRAGMENT RBC FLAG 0 (0-99); HEMATOCRIT 18.8 % (40.0-51.0); LIPEMIA HEMOLYSIS FLAG 90 (0-99); MEAN CELL HEMOGLOBIN 30.8 pg (27.9-34.1); MEAN CELL HEMOGLOBIN CONCENTR. 36.7 g/dL (32.4-36.7); MEAN CELL VOLUME 83.9 fL (81.5-99.8); MEAN PLATELET VOLUME 9.7 fL (8.7-11.7); PLATELET CLUMPS FLAG 10 (0-99); RED BLOOD CELL COUNT 2.24 10^6/uL (4.40-6.38); RED CELL DISTRIBUTION WIDTH 13.2 % (11.5-15.2)
[2016-10-17 05:26] LABS: ADD MORPH? NO; ANION GAP 4 mEq/L (8-16); CALCIUM 7.6 mg/dL (8.5-10.4); CARBON DIOXIDE 27 mEq/l (22-31); CHLORIDE 101 mEq/L (97-110); CREATININE 0.6 mg/dL (0.7-1.3); GLOMERULAR FILTRATION RATE > 60; GLUCOSE 144 mg/dL (70-100); HEMOGLOBIN 6.9 g/dL (13.7-17.5); LEFT SHIFT FLG 200 (0-99); PLATELET COUNT 34 10^3/uL (150-400); POTASSIUM 3.6 mEq/L (3.5-5.2); SODIUM 132 mEq/L (134-144)
[2016-10-17 05:28] LABS: ADD SCAN? NO
[2016-10-17 05:29] LABS: ADD DIFF? NO
[2016-10-17 06:43] LABS: PLATELET ESTIMATE DECREASED (ADEQ)
[2016-10-17] MEDS: ACYCLOVIR 200 MG CAP TUBE SCH ×2 (09:20→21:55)
[2016-10-17] MEDS: GUAIFENESIN/DM 10 ML UDCUP TUBE SCH ×2 (09:20→21:55)
[2016-10-17] MEDS: GABAPENTIN 100 MG CAP TUBE SCH ×2 (09:20→21:54)
[2016-10-17] MEDS: FLUCONAZOLE 100 MG TAB TUBE SCH (09:21)
--- NOTE | 2016-10-17 10:45 | PCMIDPN ---
Assessment/Plan: 1. 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 Will continue meropenem and levofloxacin for now, but future antibiotic plan may change. Unfortunately, patient's prognosis is extremely poor, and I reiterated that today to the family and patient. Patient is on contact isolation secondary to resistant Pseudomonas. 2. Neutropenia: The patient remains on broad-spectrum antibiotics as outlined above. 10/17/16 10:46 Subjective: Patient's frustrated about the fact that his dressing was not done by the wound care nurse, and that he has not been suctioned properly. She would like respiratory therapist to see him frequently. I was able to talk to the patient' s daughter, who is a radio communications mechanician. Was on speaker phone. She had multiple questions about whether not he has an infection or not. I told her that we are treating him for presumptive osteomyelitis regardless. Patient denies diarrhea , but states that it is becoming progressively difficult to swallow secondary to secretions. Denies nausea or vomiting. Objective: Meropenem 1 g IV q.8 hours day 3 Levofloxacin 750 mg IV daily day 4 Fluconazole day 3 Acyclovir 200 mg p.o. twice daily T-max 37.5degrees Vital Signs Temp Pulse Resp BP Pulse Ox 36.8 C 78 18 121/65 H 97 10/17/16 08:00 10/17/16 08:00 10/17/16 08:00 10/17/16 08:00 10/17/16 08:00 Microbiology 10/16/16 14:32 Gram Stain - Final Other - Other 10/16/16 14:29 Gram Stain - Final Other - Other Laboratory Results 10/17/16 04:45 10/17/16 04:45 10/16/16 10/17/16 10/18/16 05:59 05:59 05:59 Intake Total 4215 1570 Output Total 0194 1650 220 Balance 2290 -80 -220 October 16 neck: 1+ polys no organisms culture pending previous neck swabs have shown 2 separate isolates of Pseudomonas aeruginosa, MSSA, and rare Klebsiella pneumoniae and rare Enterobacter cloaca he - Physical Exam General Appearance: alert, no apparent distress, other (Has trach in place. Producing quite a bit of mucoid secretions.) EENT: other (Dressing over left mandible which I did not remove. No evidence of thrush. The patient can only open his mouth about 20 degrees. No other sores notable. Extensive swelling noted left mandible area.) Respiratory: coarse breath sounds Cardiac/Chest: regular rate, rhythm, other (Port right chest looks fine no tenderness or erythema.) Abdomen: non-tender, soft Skin: No rash ICD10 Worksheet Patient Problems: Problems Problem Status Diagnosed Alveolar adenocarcinoma Acute
[2016-10-17] MEDS: oxyCODONE ORAL SOLUTION 10 MG/0.5 ML UDSYR TUBE PRN ×2 (11:50→21:54)
--- NOTE | 2016-10-17 13:37 | SOAPPROG ---
SOAP Progress Note Assessment/Plan: A/P: * H&N cancer: aggressive disease. CT shows evidence of response in tumor. Continuing with RT (no chemo due to pancytopenia). Poor prognosis overall. * ?abscess vs. necrosis: unclear, but needs to be treated with abx due to known infection and ?osteomyelitis (vs tumor involvement) of neomandible. * Pancytopenia: likely due to chemo but not improving. Receiving G-CSF. * Supportive care: pt has been reluctant to discuss palliative care. Discussed with hospitalist, ID, and pt's . 10/17/16 13:45 Subjective: Still with increased difficulty swallowing which he attributes to thick secretions. O: VS reviewed. Gen: A&O. Communicates in writing. HEENT: unchanged facial erythema (likely RT changes). Trach with thick secretions. Lungs: prominent upper airway sounds. Objective: Vital Signs Temp Pulse Resp BP Pulse Ox 36.9 C 93 18 96/53 L 99 10/17/16 12:50 10/17/16 12:50 10/17/16 12:50 10/17/16 12:50 10/17/16 12:50 Microbiology 10/16/16 14:32 Gram Stain - Final Other - Other 10/16/16 14:29 Gram Stain - Final Other - Other Laboratory Results 10/17/16 04:45 10/17/16 04:45 10/16/16 10/17/16 10/18/16 05:59 05:59 05:59 Intake Total 4215 1570 Output Total 1925 1650 220 Balance 2290 -80 -220 PT 14.3 SEC (12.0-15.0) 10/15/16 06:00 INR 1.12 (0.83-1.16) 10/15/16 06:00 ICD10 Worksheet Patient Problems: Problems Problem Status Diagnosed Alveolar adenocarcinoma Acute
--- NOTE | 2016-10-17 13:48 | US ---
Ultrasound-guided Tract Aspiration Indication: Patient has two tracts under the left side of his chin. The first one is more anterior, j ust under the mandible. The second one is much more posterior, deeper, where the original surgically placed drain was. There is residual fluid in the tracts. Differential is necrotic tissue versus abscess versus recurren t cancer. Sampling was requested. Patient has very low platelet count, 14, and decision was made to g o inside the tract and aspirate what we can rather than stick the patient with a new needle. These ar eas are also at a location that is difficult to access by ultrasound guidance. Informed Consent: Obtained from the patient. Risks and benefits were discussed. Cross Cutting Measure: Patient's current list of medications including all known prescriptions, over -the-counters, herbals, and vitamin/mineral/dietary supplements are reviewed. Medications' name, dos age, frequency, and route of administration are confirmed. Patient is a non-smoker. Prophylactic Antibiotic: Cefazolin was not ordered and administered for antimicrobial prophylaxis be cause it was not medically necessary. VTE Prophylaxis: There is not an order for VTE prophylaxis to be given within 24 hours of the proced ure end time. VTE prophylaxis was not given because it was not medically necessary. Technique: Patient is placed in supine position. A "timeout" procedure was performed to identify th e correct patient and the correct procedure. 1% Xylocaine was used for local anesthetic. All eleme nts of maximal sterile barrier technique including cap, mask, sterile gown, sterile gloves, large lisbet rile sheet, hand hygiene, and 2% chlorhexidine for cutaneous antisepsis, followed. Ultrasound evaluation of potential access site was performed. A permanent recording was created for the patient's record. When ultrasound is used, sterile gel and probe covers are used. Indeed as expected, ultrasound interrogation of either of the tracts does not produce any significant information. The skin is first cleaned with chlorhexidine wipe with the packing material left in the tracts. Once that is done to my satisfaction, I then removed the packing material with a sterile tweezer, and the tract themselves were then cleaned externally with Betadine. 6-Grenadian Yueh needle is removed from the catheter, and the catheter is attached to 5 mL syringe. Cath eters were passed into the tract, extending as deeply as I possibly could at both sites. Anteriorly, the catheter is advanced 5 cm. Posterolaterally, the catheter is advanced 9 cm. To-and-fro motion with aspiration applied on the syringe, at both sites, produces significant amount of debris and what looks like necrotic tissue. There is a little bit of serosanguineous fluid associa shana with the aspirations, but not much. Patient tolerated the procedure very well. There was no significant discomfort. At the end of the procedure, right before transporting, patient coughed his tracheostomy tube out. He did have some episodes of coughing during the procedure. The aspirations are done with separate needles. They were sent in separate containers. Each of the as piration [facility] catheters are then cut, and sent along with the fluid in the appropriate containers. Impression: Aspiration of the two tracts at the left submandibular area performed as above.
[2016-10-17] MEDS: FILGRASTIM-SNDZ 300 MCG/0.5 ML SYR SC SCH (16:28)
--- NOTE | 2016-10-17 16:45 | DX ---
Video Esophagram with Speech Therapy, 12:00 PM Indication: 76-year-old man with history of head and neck cancer and mandibular reconstruction. Dysp hagia. Evaluate for aspiration. Technique: The study was performed jointly with the speech pathologist, Lalita, with the patient grabiel saldana laterally in a Shannen chair. The oral and pharyngeal phases of swallowing were observed with fluo roscopy while the patient ingested various barium consistencies. Fluoroscopy Time: 1.6 minutes. Dose: 8.2 mGy. Findings: No aspiration occurred at any point throughout the exam. Minimal residua accumulates within the valleculae which is clear with secondary swallows. Oral phase incompletely clears the oral bolus with the initial swallows and the residue slowly leaks down the base of the tongue and accumulates i n the valleculae. This residue ultimately clears with secondary swallows. The epiglottis intermittent ly completely inverts. Impression: 1. No aspiration at any point. 2. Mild oral and pharyngeal dysphagia resulting in vallecular residue which does ultimately clear wit h secondary swallows. 3. Please refer to the speech therapist's report and recommendations.
--- NOTE | 2016-10-17 16:57 | WOCRNPDOC ---
WOCRN Advanced Assessment Note - Skin Integrity Problem, Advanced Assess Left Lower Jaw Surgical Wound/Incision Dressing Type: Allevyn Life (x2), Hydrofera Blue (tunneling x2 ( one in each wound bed)) Dressing Description: Intact, Saturated Exudate Amount: Minimal Exudate Characteristic(s): Purulent Integumentary Issue Intervention: Dressing Changed Elba Wound Tissue: Erythema Elba Wound Swelling: Severe Wound Bed Constitution: Smooth Tissue, Tunneling (along jaw line toward chin approx 2.5-3 cm), Undermining (angle of the jaw wound) Skin Integrity Problem Comment: Removed one small piece of hydrofera blue ready from each wound bed. Probed both wounds with the guidance of patient's daughter in law who was at the bedside along with his and son. Proximal wound at angle of the jaw undermined approximatly 1.5 cm and then had a very narrow tunnel of approx 3 cm running parallel to his mandible. Patient's daughter in law expressed concern that there may be a piece of packing remaining in the wound bed as it tunneled much more significantly yesterday. There was no packing felt, however as Wound Rn was unsure Dr. New was contacted and alerted to the situation. It was repacked lightly with 1/4 inch algidex Ag packing tape and recovered with Allevyn life. Patient tolerated proceedure well. The distal wound was also quite discrete and was repacked as well in the same fashion. DESHAUN French in room for care. Coccyx Pressure Injury Dressing Type: Allevyn Life Dressing Description: Soiled Exudate Amount: None Integumentary Issue Intervention: Dressing Changed, Hydrogel Applied Elba Wound Tissue: Erythema Elba Wound Swelling: None Wound Bed Color: Red Wound Bed Constitution: Granulation Tissue (80%), Smooth Tissue (20%) Wound Edges: Epithelizing Pressure Injury Present on Admit: Yes Skin Integrity Problem Comment: Long standing wound as evidenced by extensive elba wound epithelization and moderate scarring. Due to high risk for further breakdown specialty support surface will be ordered. Tracheostomy site Dressing Type: Dressing Sponge Skin Integrity Problem Comment: No breakdown noted. Dressing sponge dressing appropriate.
[2016-10-17] MEDS: NEXIUM 22.3 MG TUBE SCH (18:15)
--- NOTE | 2016-10-17 18:38 | HOSPPROG ---
Hospitalist Progress Note Assessment/Plan: DIAGNOSIS: -New bony and soft tissue abnormalities at the mandible and neck as described below in radiology. These are of uncertain nature or etiology, with suspicion for either infection, tissue necrosis, and or tumor. I strongly suspect infection; as his mean tumor is shrinking tumor seems less likely. -abnormality of left mandible, either necrotic, osteomyelitis, or tumor -soft tissue abnormalities in the area of the mandible which could be necrosis with phlegmon, abscess, or other cause -soft tissue sinus tract from the oropharynx to the skin of the neck below the mandible on the left PLANS: I have reviewed the patient's case in detail with Dr. Diana Tamez and Whitney Davidson Will continue current antibiotics and follow cultures at this time He is scheduled for radiation therapy again today Continue his tube feeds, continue attempts to do oral feedings well with speech therapy DVT prophylaxis mechanical due to his severe thrombocytopenia SUBJECTIVE: feels better overall with better energy. No fever symptoms at this time He has been able to take in some applesauce and similar to extra few days with speech therapy successfully OBJECTIVE Vitals reviewed: stable without fever Exam: alert oriented Tracheostomy site looks okay Left submandibular sinus tract unchanged swelling and redness around the face and jaw area unchanged today His voice is stronger today resps not labored lungs with diffuse but less rhonchi today heart regular abd soft nondistended nontender, bowel sounds present; peg tube site looks good and he is receiving tube feedings without any leak limbs warm, no edema iv site ok Objective: Vital Signs Temp Pulse Resp BP Pulse Ox 36.9 C 99 20 117/67 94 10/17/16 12:50 10/17/16 16:00 10/17/16 16:00 10/17/16 16:00 10/17/16 16:00 Microbiology 10/16/16 14:32 Gram Stain - Final Other - Other 10/16/16 14:29 Gram Stain - Final Other - Other Laboratory Results 10/17/16 04:45 10/17/16 04:45 10/16/16 10/17/16 10/18/16 06:59 06:59 06:59 Intake Total 4215 1570 1395 Output Total 1925 1650 320 Balance 2290 -80 1075 PT 14.3 SEC (12.0-15.0) 10/15/16 06:00 INR 1.12 (0.83-1.16) 10/15/16 06:00 ICD10 Worksheet Patient Problems: Problems Problem Status Diagnosed Alveolar adenocarcinoma Acute
[2016-10-17] MEDS: NS 1,000 ML IV SCH (22:00)
[2016-10-18] MEDS: MEROPENEM 1 GM in NS 100 ML IV SCH ×3 (04:56→21:09)
[2016-10-18 06:02] LABS: FRAGMENT RBC FLAG 0 (0-99); HEMATOCRIT 19.4 % (40.0-51.0); LIPEMIA HEMOLYSIS FLAG 90 (0-99); MEAN CELL HEMOGLOBIN 29.5 pg (27.9-34.1); MEAN CELL HEMOGLOBIN CONCENTR. 34.5 g/dL (32.4-36.7); MEAN CELL VOLUME 85.5 fL (81.5-99.8); MEAN PLATELET VOLUME 10.4 fL (8.7-11.7); PLATELET CLUMPS FLAG 0 (0-99); RED BLOOD CELL COUNT 2.27 10^6/uL (4.40-6.38); RED CELL DISTRIBUTION WIDTH 13.2 % (11.5-15.2)
[2016-10-18 06:05] LABS: ADD MORPH? NO; ATYPICAL LYMPHOCYTE FLAG 180 (0-99); HEMOGLOBIN 6.7 g/dL (13.7-17.5); LEFT SHIFT FLG 300 (0-99); PLATELET COUNT 30 10^3/uL (150-400)
[2016-10-18 06:07] LABS: ADD SCAN? NO
[2016-10-18 06:10] LABS: ANION GAP 4 mEq/L (8-16); CALCIUM 7.6 mg/dL (8.5-10.4); CARBON DIOXIDE 29 mEq/l (22-31); CHLORIDE 100 mEq/L (97-110); CREATININE 0.6 mg/dL (0.7-1.3); GLOMERULAR FILTRATION RATE > 60; GLUCOSE 139 mg/dL (70-100); POTASSIUM 3.7 mEq/L (3.5-5.2); SODIUM 133 mEq/L (134-144)
[2016-10-18 06:11] LABS: ADD DIFF? NO
[2016-10-18 07:10] LABS: PLATELET ESTIMATE DECREASED (ADEQ)
[2016-10-18] MEDS: GUAIFENESIN/DM 10 ML UDCUP TUBE SCH ×2 (09:32→21:10)
[2016-10-18] MEDS: FLUCONAZOLE 100 MG TAB TUBE SCH (09:32)
[2016-10-18] MEDS: GABAPENTIN 100 MG CAP TUBE SCH ×2 (09:32→21:10)
[2016-10-18] MEDS: ACYCLOVIR 200 MG CAP TUBE SCH ×2 (09:32→21:10)
[2016-10-18] MEDS: oxyCODONE ORAL SOLUTION 10 MG/0.5 ML UDSYR TUBE PRN (09:35)
--- NOTE | 2016-10-18 10:19 | PCMIDPN ---
Assessment/Plan: 1. 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 Unfortunately, obtaining cure will be difficult. No new recommendations at this point in time. Wound care nurse assistance greatly appreciated. 2. Neutropenia: The patient remains on broad-spectrum antibiotics as outlined above. He is afebrile. Subjective: Had radiation yesterday without events. Wound care nurse redressed his wounds thoroughly. States he just threw up, but states that nausea is not uncommon for him. No diarrhea. Is otherwise doing about the same. Still having quite a bit of secretions. Objective: Meropenem 1 g IV q.8 hours day for Levofloxacin 750 mg daily day 5 Fluconazole 100 mg daily day for Acyclovir 200 mg p.o. q.12 T-max 37degrees Vital Signs Temp Pulse Resp BP Pulse Ox 36.9 C 98 18 105/53 L 97 10/18/16 08:39 10/18/16 08:39 10/18/16 08:39 10/18/16 08:39 10/18/16 08:39 Microbiology 10/16/16 14:29 Gram Stain - Final Other - Other 10/16/16 14:32 Gram Stain - Final Other - Other Laboratory Results 10/18/16 05:00 10/18/16 05:00 10/17/16 10/18/16 10/19/16 05:59 05:59 05:59 Intake Total 1570 3470 Output Total 1650 945 Balance -80 2525 No new microbiology - Physical Exam General Appearance: alert, no apparent distress EENT: other (Left mandible dressed-I did not remove any of his superficial dressings.) Respiratory: coarse breath sounds Cardiac/Chest: other (Port right chest looks fine with no erythema or tenderness to palpation.) Extremities: other Abdomen: non-tender, soft, other (Feeding tube in place.) Skin: No rash ICD10 Worksheet Patient Problems: Problems Problem Status Diagnosed Alveolar adenocarcinoma Acute
[2016-10-18] MEDS: HYDROmorphONE/DILAUDID 1 MG/ML SYR IVP PRN ×3 (11:26→21:10)
--- NOTE | 2016-10-18 12:25 | SOAPPROG ---
SOAP Progress Note Assessment/Plan: Assessment/Plan: 76 yo man with H&N cancer admitted w neutropenia fever 1. Head & Neck - fairly aggressive disease most recently on combined modality therapy w chemo XRT; CT shows e/o tumor response; due to pancytopenia, continuing RT but holding chemo 2. ?abscess vs necrosis - appreciate ID and trated w IV abx due to known infection and ?osteomyelitis or neomandible Wound care ongoing 3. Pancytopenia - slight improvement; on GCSF 4. Supportive Care - pt has been reluctant to discuss palliation 5. Nausea - prn antiemetics 6. NPO - s/p trach, received tube feeds; watching Na and electrolytes 10/18/16 12:30 Subjective: Some nausea this am thick secretions Objective: Vital Signs Temp Pulse Resp BP Pulse Ox 36.9 C 98 18 105/53 L 97 10/18/16 08:39 10/18/16 08:39 10/18/16 08:39 10/18/16 08:39 10/18/16 08:39 Microbiology 10/16/16 14:32 Gram Stain - Final Other - Other 10/16/16 14:29 Gram Stain - Final Other - Other Laboratory Results 10/18/16 05:00 10/18/16 05:00 10/17/16 10/18/16 10/19/16 05:59 05:59 05:59 Intake Total 1570 3470 Output Total 1650 945 Balance -80 2525 PT 14.3 SEC (12.0-15.0) 10/15/16 06:00 INR 1.12 (0.83-1.16) 10/15/16 06:00 GEN - NAD, alert and oriented HEENT - unchanged facial erythema, wound bandages in place on left mandible; trach intact CV - RRR Chest - CTA anteriorly Abd - soft, NT, BS+ Ext - no sig edema ICD10 Worksheet Patient Problems: Problems Problem Status Diagnosed Alveolar adenocarcinoma Acute
[2016-10-18] MEDS: FILGRASTIM-SNDZ 300 MCG/0.5 ML SYR SC SCH (13:18)
[2016-10-18] MEDS: ONDANSETRON 4 MG/2 ML VIAL IVP PRN (15:34)
[2016-10-18] MEDS: NEXIUM 22.3 MG TUBE SCH (18:40)
--- NOTE | 2016-10-18 19:36 | HOSPPROG ---
Hospitalist Progress Note Assessment/Plan: DIAGNOSIS: -New bony and soft tissue abnormalities at the mandible and neck as described below in radiology. These are of uncertain nature or etiology, with suspicion for either infection, tissue necrosis, and or tumor. I strongly suspect infection; as his mean tumor is shrinking tumor seems less likely. -abnormality of left mandible, either necrotic, osteomyelitis, or tumor -soft tissue abnormalities in the area of the mandible which could be necrosis with phlegmon, abscess, or other cause -soft tissue sinus tract from the oropharynx to the skin of the neck below the mandible on the left PLANS: I have reviewed the patient's case in detail with Dr. Anaya Will continue current antibiotics and follow cultures at this time He is scheduled for radiation therapy again on Thursday in 2 days from now Continue his tube feeds, continue attempts to do oral feedings well with speech therapy DVT prophylaxis mechanical due to his severe thrombocytopenia SUBJECTIVE: about the same as yesterday, still feels tightness around his jaw but not much pain No fever symptoms Not short of breath Still with much cough and sputum production OBJECTIVE Vitals reviewed: stable without fever Exam: alert oriented Tracheostomy site looks okay Left submandibular sinus tract unchanged but with minimal drainage at this time swelling and redness around the face and jaw area unchanged today resps not labored lungs clear today heart regular abd soft nondistended nontender, bowel sounds present; peg tube site looks good limbs warm, no edema iv site ok Objective: Vital Signs Temp Pulse Resp BP Pulse Ox 37.3 C 83 20 109/55 L 98 10/18/16 16:00 10/18/16 16:50 10/18/16 16:50 10/18/16 16:00 10/18/16 16:50 Microbiology 10/16/16 14:32 Gram Stain - Final Other - Other 10/16/16 14:29 Gram Stain - Final Other - Other Laboratory Results 10/18/16 05:00 10/18/16 05:00 10/17/16 10/18/16 10/19/16 06:59 06:59 06:59 Intake Total 1570 3470 1875 Output Total 8089 314 8126 Balance -80 2525 525 PT 14.3 SEC (12.0-15.0) 10/15/16 06:00 INR 1.12 (0.83-1.16) 10/15/16 06:00 ICD10 Worksheet Patient Problems: Problems Problem Status Diagnosed Alveolar adenocarcinoma Acute
[2016-10-18] MEDS: TEMAZEPAM 15 MG CAP TUBE PRN (21:26)
[2016-10-19 04:16] LABS: ADD MORPH? YES; ATYPICAL LYMPHOCYTE FLAG 0 (0-99); FRAGMENT RBC FLAG 0 (0-99); HEMATOCRIT 19.3 % (40.0-51.0); LIPEMIA HEMOLYSIS FLAG 90 (0-99); MEAN CELL HEMOGLOBIN 30.5 pg (27.9-34.1); MEAN CELL HEMOGLOBIN CONCENTR. 35.8 g/dL (32.4-36.7); MEAN CELL VOLUME 85.4 fL (81.5-99.8); MEAN PLATELET VOLUME 10.4 fL (8.7-11.7); PLATELET CLUMPS FLAG 0 (0-99); RED BLOOD CELL COUNT 2.26 10^6/uL (4.40-6.38); RED CELL DISTRIBUTION WIDTH 13.2 % (11.5-15.2)
[2016-10-19 04:17] LABS: HEMOGLOBIN 6.9 g/dL (13.7-17.5); LEFT SHIFT FLG 300 (0-99); PLATELET COUNT 30 10^3/uL (150-400)
[2016-10-19 04:19] LABS: % IMMATURE GRANULYOCYTES 5.1 % (0.0-1.1)
[2016-10-19 04:20] LABS: ABSOLUTE IMMATURE GRANULOCYTES 0.05 10^3/uL (0.00-0.10)
[2016-10-19 04:22] LABS: ADD DIFF? NO; ADD SCAN? NO
[2016-10-19 04:59] LABS: ELLIPTOCYTES 1+; MICROCYTES 1+; PLATELET ESTIMATE DECREASED (ADEQ)
[2016-10-19] MEDS: MEROPENEM 1 GM in NS 100 ML IV SCH ×3 (05:01→21:59)
[2016-10-19] MEDS: SCOPOLAMINE HYDROBROMIDE 1.5 MG PATCH TD SCH (09:36)
[2016-10-19] MEDS: GUAIFENESIN/DM 10 ML UDCUP TUBE SCH ×2 (09:36→21:59)
[2016-10-19] MEDS: ACYCLOVIR 200 MG CAP TUBE SCH ×2 (09:36→21:59)
[2016-10-19] MEDS: FLUCONAZOLE 100 MG TAB TUBE SCH (09:36)
[2016-10-19] MEDS: GABAPENTIN 100 MG CAP TUBE SCH ×2 (09:36→22:00)
[2016-10-19] MEDS: NS 1,000 ML IV SCH ×2 (09:48→21:56)
--- NOTE | 2016-10-19 11:07 | PCMIDPN ---
Assessment/Plan: 1. 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 Unfortunately, obtaining cure will be difficult, and prognosis is extremely poor. Patient will have his dressing change tomorrow by the wound care service. Also of note, the patient expressed a desire to have a palliative care consult. Hopefully we can make this happen. 2. Neutropenia: His white cell count is coming up. On broad-spectrum antibiotics as above. Subjective: Patient continues to experience back pain from his history of spinal stenosis. Fewer secretions. Neomandible draining less. When Dr. New and I walked in the room, patient asked us how long do I have like this, is it worth all of this given that I cannot be cured. I know I am going to of this, right? We proceeded to have a conversation about end of life care. The patient states that it is difficult for him to make decisions when his family is around. He asked me how does this all work? I proceeded to explained to him that in this situation we typically have the palliative care service to a consultation and talked to him about these things. When I asked him if he wanted this, he told me yes. His then walked in the room, and this conversation stopped at his request. His had multiple questions, and wanted to know his counts today. She would like him to have the respiratory therapist see him more frequently, and remove his Passy Say valve so that he can express secretions through his trach and not his mouth. The patient team to express frustration with this, and stated that if this were to happen he would not be able to talk. She then told him that would only be for a few minutes. Objective: Meropenem 1 g IV q.8 hours day 5 Levofloxacin 750 mg daily day 6 Fluconazole 100 mg daily day 5 Acyclovir 200 mg p.o. twice daily Afebrile Vital Signs Temp Pulse Resp BP Pulse Ox 36.6 C 95 16 113/67 97 10/19/16 08:22 10/19/16 09:59 10/19/16 09:59 10/19/16 08:22 10/19/16 09:59 Microbiology 10/16/16 14:32 Gram Stain - Final Other - Other 10/16/16 14:29 Gram Stain - Final Other - Other Laboratory Results 10/19/16 04:05 10/18/16 05:00 10/18/16 10/19/16 10/20/16 05:59 05:59 05:59 Intake Total 3470 3495 Output Total 943 1900 250 Balance 2525 1595 -250 - Physical Exam General Appearance: alert, no apparent distress EENT: other (Left michelle mandible with less drainage. Clean margins.) Respiratory: coarse breath sounds Cardiac/Chest: other (Right chest port looks fine) Skin: No rash ICD10 Worksheet Patient Problems: Problems Problem Status Diagnosed Alveolar adenocarcinoma Acute
--- NOTE | 2016-10-19 11:25 | HOSPPROG ---
Hospitalist Progress Note Assessment/Plan: DIAGNOSIS: -New bony and soft tissue abnormalities at the left mandible, appear to likely involve osteomyelitis and soft tissue infection; as his main tumor mass is shrinking, tumor seems less likely. Necrosis of these tissues is also possible. However he seems to be improving with antibiotics. There is a hypodensity at the angle of the mandible, soft tissue phlegmon like change, and a sinus tract from the oropharynx to the skin below the angle of mandible -head neck cancer with recent radiation and chemotherapy -tracheostomy, with ongoing cough and significant respiratory secretions -chronic low back pain -dysphagia, being treated by speech language pathology -pancytopenia from chemotherapy PLANS: I have reviewed the patient's case in detail with Dr. Anaya and Dr. Tamez Will continue current antibiotics and follow cultures at this time Ongoing wound care for his sinus tract at the left neck along with an adjacent previous wound with a drain still in place He is scheduled for radiation therapy again tomorrow (thursday) Ongoing physical and occupational therapies Continue his tube feeds, continue attempts to do oral feedings well with speech therapy DVT prophylaxis mechanical due to his severe thrombocytopenia The patient has confided to Dr. Tamez and myself that he would like to have palliative care consultation to explore palliative ideas, however he does not wish to include his spouse in these conversations at this time. Our conversation today occurred in the absence of his . We will attempt to arrange for palliative care discussion to occur for the patient when his is not here. SUBJECTIVE: about the same as yesterday, still feels tightness around his jaw but not much pain No fever symptoms Not short of breath Still with much cough and sputum production OBJECTIVE Vitals reviewed: stable without fever Exam: alert oriented Tracheostomy site looks okay Left submandibular sinus tract unchanged but with minimal drainage at this time swelling and redness around the face and jaw area unchanged today resps not labored lungs clear today heart regular abd soft nondistended nontender, bowel sounds present; peg tube site looks good limbs warm, no edema iv site ok Objective: Vital Signs Temp Pulse Resp BP Pulse Ox 36.6 C 95 16 113/67 97 10/19/16 08:22 10/19/16 09:59 10/19/16 09:59 10/19/16 08:22 10/19/16 09:59 Microbiology 10/16/16 14:32 Gram Stain - Final Other - Other 10/16/16 14:29 Gram Stain - Final Other - Other Laboratory Results 10/19/16 04:05 10/18/16 05:00 10/18/16 10/19/16 10/20/16 06:59 06:59 06:59 Intake Total 3470 3495 Output Total 945 1900 250 Balance 2525 1595 -250 PT 14.3 SEC (12.0-15.0) 10/15/16 06:00 INR 1.12 (0.83-1.16) 10/15/16 06:00 ICD10 Worksheet Patient Problems: Problems Problem Status Diagnosed Alveolar adenocarcinoma Acute
--- NOTE | 2016-10-19 12:02 | SOAPPROG ---
SOAP Progress Note Assessment/Plan: Assessment/Plan: 76 yo man with H&N cancer admitted w neutropenia fever 1. Head & Neck - fairly aggressive disease most recently on combined modality therapy w chemo XRT; CT shows e/o tumor response; due to pancytopenia, continuing RT but holding chemo RT to resume Thursday 2. ?abscess vs necrosis - appreciate ID and treated w IV abx due to known infection and ?osteomyelitis or neomandible Wound care ongoing 3. Pancytopenia - slight improvement; on GCSF; after discussion w and pt, will give 1 unit PRBCs today 4. Supportive Care - pt has been reluctant to discuss palliation but now has verbalized want to do so 5. Nausea - prn antiemetics 6. NPO - s/p trach, received tube feeds; watching Na and electrolytes 10/18/16 12:30 10/19/16 11:58 Subjective: No acute events Nausea improved Objective: Vital Signs Temp Pulse Resp BP Pulse Ox 36.6 C 95 16 113/67 97 10/19/16 08:22 10/19/16 09:59 10/19/16 09:59 10/19/16 08:22 10/19/16 09:59 Microbiology 10/16/16 14:32 Gram Stain - Final Other - Other 10/16/16 14:29 Gram Stain - Final Other - Other Laboratory Results 10/19/16 04:05 10/18/16 05:00 10/18/16 10/19/16 10/20/16 05:59 05:59 05:59 Intake Total 3470 3495 Output Total 945 1900 250 Balance 2525 1595 -250 PT 14.3 SEC (12.0-15.0) 10/15/16 06:00 INR 1.12 (0.83-1.16) 10/15/16 06:00 Gen - chronically ill appearing HEENT -trach in tact, left mandibular wound stable CV - RRR Abd - soft Ext - no sig edema ICD10 Worksheet Patient Problems: Problems Problem Status Diagnosed Alveolar adenocarcinoma Acute
[2016-10-19] MEDS: FILGRASTIM-SNDZ 300 MCG/0.5 ML SYR SC SCH (14:55)
[2016-10-19] MEDS: oxyCODONE ORAL SOLUTION 10 MG/0.5 ML UDSYR TUBE PRN ×2 (15:28→22:00)
[2016-10-19] MEDS: ONDANSETRON 4 MG/2 ML VIAL IVP PRN (17:46)
[2016-10-19] MEDS: NEXIUM 22.3 MG TUBE SCH (18:58)
[2016-10-19] MEDS: TEMAZEPAM 15 MG CAP TUBE PRN (22:00)
[2016-10-20] MEDS: NS 1,000 ML IV SCH ×3 (04:39→20:40)
[2016-10-20] MEDS: MEROPENEM 1 GM in NS 100 ML IV SCH ×3 (04:39→20:09)
[2016-10-20 05:08] LABS: ADD DIFF? YES; ADD MORPH? NO; ATYPICAL LYMPHOCYTE FLAG 0 (0-99); FRAGMENT RBC FLAG 0 (0-99); HEMATOCRIT 22.5 % (40.0-51.0); HEMOGLOBIN 7.8 g/dL (13.7-17.5); LIPEMIA HEMOLYSIS FLAG 90 (0-99); MEAN CELL HEMOGLOBIN 30.1 pg (27.9-34.1); MEAN CELL HEMOGLOBIN CONCENTR. 34.7 g/dL (32.4-36.7); MEAN CELL VOLUME 86.9 fL (81.5-99.8); MEAN PLATELET VOLUME 10.7 fL (8.7-11.7); PLATELET CLUMPS FLAG 20 (0-99); RED BLOOD CELL COUNT 2.59 10^6/uL (4.40-6.38); RED CELL DISTRIBUTION WIDTH 13.5 % (11.5-15.2)
[2016-10-20 05:21] LABS: LEFT SHIFT FLG 300 (0-99); PLATELET COUNT 34 10^3/uL (150-400)
[2016-10-20 05:22] LABS: ADD SCAN? NO
[2016-10-20 05:28] LABS: ANION GAP 5 mEq/L (8-16); CALCIUM 7.8 mg/dL (8.5-10.4); CARBON DIOXIDE 28 mEq/l (22-31); CHLORIDE 103 mEq/L (97-110); CREATININE 0.6 mg/dL (0.7-1.3); GLOMERULAR FILTRATION RATE > 60; GLUCOSE 134 mg/dL (70-100); POTASSIUM 3.8 mEq/L (3.5-5.2); SODIUM 136 mEq/L (134-144)
[2016-10-20 06:25] LABS: GIANT PLATELETS PRESENT; PLATELET ESTIMATE DECREASED (ADEQ)
[2016-10-20 06:26] LABS: MICROCYTES 2+; TOXIC GRANULATION PRESENT; TOXIC VACUOLIZATION PRESENT
[2016-10-20 06:27] LABS: ELLIPTOCYTES 1+; KERATOCYTES 1+
--- NOTE | 2016-10-20 08:36 | SOAPPROG ---
SOAP Progress Note Assessment/Plan: Assessment: 1) Locally recurrent head and neck cancer 2) Left submandibular abcess with associated osteomyelitis 3) Wound cx positive for pseudomonas 4) Neutropenia secondary to recent chemotherapy Plan: I had a long discussion with Chris this AM. His was not present for the discussion. He expressed to me that he is unsure if he wants to continue with treatment. He wanted to do XRT today, given that he remains undecided. His questions centered on palliative care and end of life options. At this point it is highly unlikely that his disease will be cured with therapy. He is understanding and accepting of this. I encouraged him to discuss his wishes openly with his and family. I think that a palliative care consult would be very helpful. I will initiate this once the patient has spoken with his . He will continue on Abx. His WBC is improved on Granix. This will be continued today and likely stopped tomorrow. 10/20/16 08:30 Subjective: Patient denies pain. He has multiple questions about palliative care options Objective: Vital Signs Temp Pulse Resp BP Pulse Ox 36.7 C 87 16 103/63 89 L 10/20/16 04:00 10/20/16 04:00 10/20/16 04:00 10/20/16 04:00 10/20/16 04:00 Microbiology 10/14/16 23:15 Blood Culture - Final Blood 10/14/16 18:30 Blood Culture - Final Blood 10/16/16 14:32 Gram Stain - Final Other - Other 10/16/16 14:29 Gram Stain - Final Other - Other Laboratory Results 10/20/16 04:45 10/20/16 04:45 10/19/16 10/20/16 10/21/16 05:59 05:59 05:59 Intake Total 3495 1500 Output Total 1900 2150 Balance 1595 -650 PT 14.3 SEC (12.0-15.0) 10/15/16 06:00 INR 1.12 (0.83-1.16) 10/15/16 06:00 - Time Spent With Patient Time Spent With Patient: 40 minutes Physical Exam - Physical Exam General Appearance: alert, no apparent distress EENT: other (Left perimadibular swelling. No drainage. Tracheostomy in place) Abdomen: non-tender, soft Neuro/Psych: alert, oriented x 3 ICD10 Worksheet Patient Problems: Problems Problem Status Diagnosed Alveolar adenocarcinoma Acute
[2016-10-20] MEDS: GABAPENTIN 100 MG CAP TUBE SCH ×2 (08:56→20:10)
[2016-10-20] MEDS: MAGIC MOUTHWASH MM PRN ×2 (08:56→13:55)
[2016-10-20] MEDS: oxyCODONE ORAL SOLUTION 10 MG/0.5 ML UDSYR TUBE PRN (08:56)
[2016-10-20] MEDS: GUAIFENESIN/DM 10 ML UDCUP TUBE SCH ×2 (08:56→20:10)
[2016-10-20] MEDS: FLUCONAZOLE 100 MG TAB TUBE SCH (08:56)
[2016-10-20] MEDS: ACYCLOVIR 200 MG CAP TUBE SCH ×2 (08:57→20:10)
--- NOTE | 2016-10-20 09:23 | PCMIDPN ---
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 Continue therapy with meropenem and levofloxacin. Neutropenia now has resolved. Complex circumstance with limited ability for eradication of infection in this setting with underlying squamous cell carcinoma and sinus tract formation. * Neutropenia: Resolve with ANC greater than 1000. * Fever: Febrile overnight after transfusion. Consideration would be transfusion reaction versus improved immunologic response to mandibular infection with recovery of neutrophils. Repeat blood cultures are pending. 10/20/16 09:20 Subjective: Patient complains of constant pressure in his left jaw. Dr. Huerta's note reviewed regarding possible palliative evaluation. Objective: Vital Signs Temp Pulse Resp BP Pulse Ox 36.7 C 87 16 103/63 89 L 10/20/16 04:00 10/20/16 04:00 10/20/16 04:00 10/20/16 04:00 10/20/16 04:00 Microbiology 10/14/16 23:15 Blood Culture - Final Blood 10/14/16 18:30 Blood Culture - Final Blood 10/16/16 14:32 Gram Stain - Final Other - Other 10/16/16 14:29 Gram Stain - Final Other - Other Laboratory Results 10/20/16 04:45 10/20/16 04:45 10/19/16 10/20/16 10/21/16 05:59 05:59 05:59 Intake Total 3495 1500 Output Total 1900 2150 Balance 1595 -650 Meropenem # 5 Levofloxacin # 6 Fluconazole # 5 Tm 38.6 Blood cultures x 2 10/19/2016 pending - Physical Exam General Appearance: alert, no apparent distress EENT: other (Left mandibular region with erythema, tenderness and edema; packing in place which was not removed today), No thrush Respiratory: lungs clear (Anterolaterally), No respiratory distress Neck: other (Tracheostomy present) Cardiac/Chest: regular rate, rhythm, other (Port in right upper chest without erythema or tenderness) Abdomen: non-tender, No distended ICD10 Worksheet Patient Problems: Problems Problem Status Diagnosed Alveolar adenocarcinoma Acute
[2016-10-20] MEDS: FILGRASTIM-SNDZ 300 MCG/0.5 ML SYR SC SCH (13:40)
--- NOTE | 2016-10-20 14:59 | HOSPPROG ---
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 with: - Left submandibular abscess with associated osteomyelitis with cultures growing Pseudomonas, Klebsiella, Enterobacter, MSSA - continue antibiotics per Infectious Disease with meropenem and levofloxacin to complete 6 weeks of treatment - resolved neutropenic fever - continue Granix -head neck cancer with recent radiation and chemotherapy - continue care per med onc and Radiation Oncology -tracheostomy, with ongoing cough and significant respiratory secretions -chronic low back pain -dysphagia, being treated by speech language pathology -pancytopenia from chemotherapy disposition: Patient is interested in a palliative Care consultation which I ordered. The patient's is reluctant to make any end of life decisions at this time. The patient does make it pretty clear that he does not " want to live like this". Subjective: no new complaints. pain controlled Objective: Vital Signs Temp Pulse Resp BP Pulse Ox 36.6 C 93 24 H 102/60 98 10/20/16 11:00 10/20/16 11:00 10/20/16 11:00 10/20/16 11:00 10/20/16 11:00 Microbiology 10/16/16 14:29 Gram Stain - Final Other - Other 10/16/16 14:32 Gram Stain - Final Other - Other 10/14/16 23:15 Blood Culture - Final Blood 10/14/16 18:30 Blood Culture - Final Blood Laboratory Results 10/20/16 04:45 10/20/16 04:45 10/19/16 10/20/16 10/21/16 05:59 05:59 05:59 Intake Total 3495 1500 Output Total 1900 2150 Balance 1595 -650 PT 14.3 SEC (12.0-15.0) 10/15/16 06:00 INR 1.12 (0.83-1.16) 10/15/16 06:00 - Physical Exam Constitutional: no apparent distress, appears nourished, not in pain Cardiovascular: regular rate and rhythym, no murmur, rub, or gallop Respiratory: no respiratory distress, no rales or rhonchi, clear to auscultation Gastrointestinal: normoactive bowel sounds, soft, non-tender abdomen, no palpable masses ICD10 Worksheet Patient Problems: Problems Problem Status Diagnosed Alveolar adenocarcinoma Acute
[2016-10-20] MEDS: NEXIUM 22.3 MG TUBE SCH (18:18)
[2016-10-20] MEDS: oxyCODONE ORAL SOLUTION 10 MG/0.5 ML UDSYR TUBE SCH (20:10)
[2016-10-20] MEDS: AQUAPHOR OINTMENT 3.5 OZ JAR TP SCH ×2 (21:52→23:22)
[2016-10-20] MEDS: TEMAZEPAM 15 MG CAP TUBE PRN (23:06)
[2016-10-21] MEDS: MEROPENEM 1 GM in NS 100 ML IV SCH (05:21)
[2016-10-21 06:01] LABS: ADD DIFF? YES; ADD MORPH? NO; ATYPICAL LYMPHOCYTE FLAG 0 (0-99); FRAGMENT RBC FLAG 0 (0-99); HEMATOCRIT 22.7 % (40.0-51.0); HEMOGLOBIN 7.9 g/dL (13.7-17.5); LIPEMIA HEMOLYSIS FLAG 90 (0-99); MEAN CELL HEMOGLOBIN 30.6 pg (27.9-34.1); MEAN CELL HEMOGLOBIN CONCENTR. 34.8 g/dL (32.4-36.7); MEAN PLATELET VOLUME 10.7 fL (8.7-11.7); PLATELET CLUMPS FLAG 0 (0-99); RED BLOOD CELL COUNT 2.58 10^6/uL (4.40-6.38); RED CELL DISTRIBUTION WIDTH 13.7 % (11.5-15.2)
[2016-10-21 06:03] LABS: ADD SCAN? NO; LEFT SHIFT FLG 300 (0-99); PLATELET COUNT 40 10^3/uL (150-400)
[2016-10-21 06:13] LABS: ALANINE AMINOTRANSFERASE 32 IU/L (21-72); ALBUMIN 2.3 g/dL (3.5-5.0); ALKALINE PHOSPHATASE 105 IU/L (38-126); ANION GAP 5 mEq/L (8-16); ASPARTATE AMINOTRANSFERASE 17 IU/L (17-59); BILIRUBIN,TOTAL 0.2 mg/dL (0.1-1.4); CALCIUM 7.7 mg/dL (8.5-10.4); CARBON DIOXIDE 28 mEq/l (22-31); CHLORIDE 103 mEq/L (97-110); CREATININE 0.5 mg/dL (0.7-1.3); GLOMERULAR FILTRATION RATE > 60; GLUCOSE 166 mg/dL (70-100); POTASSIUM 3.9 mEq/L (3.5-5.2); SODIUM 136 mEq/L (134-144); TOTAL PROTEIN 4.5 g/dL (6.3-8.2)
[2016-10-21 07:03] LABS: LARGE PLATELETS PRESENT; PLATELET ESTIMATE DECREASED (ADEQ); TOXIC GRANULATION PRESENT; TOXIC VACUOLIZATION PRESENT
[2016-10-21 07:06] LABS: ELLIPTOCYTES 1+; GIANT PLATELETS PRESENT; MICROCYTES 2+
[2016-10-21] MEDS: ACYCLOVIR 200 MG CAP TUBE SCH ×2 (08:59→20:53)
[2016-10-21] MEDS: GUAIFENESIN/DM 10 ML UDCUP TUBE SCH ×2 (08:59→20:53)
[2016-10-21] MEDS: GABAPENTIN 100 MG CAP TUBE SCH ×2 (08:59→20:53)
[2016-10-21] MEDS: FLUCONAZOLE 100 MG TAB TUBE SCH (08:59)
[2016-10-21] MEDS: oxyCODONE ORAL SOLUTION 10 MG/0.5 ML UDSYR TUBE SCH ×2 (09:00→20:53)
[2016-10-21] MEDS: AQUAPHOR OINTMENT 3.5 OZ JAR TP SCH ×2 (09:00→22:11)
--- NOTE | 2016-10-21 09:14 | PCMIDPN ---
Assessment/Plan: # Possible left submandibular abscess and mandibular osteomyelitis, deep wound cultures (via existing tracts) show rare Pseudomonas best susceptible. Past isolates showed more resistance. Suspect heterogeneous bacterial population. ANC greater than 4000. half are bands which is not unexpected after receiving Neupogen. No further fever since 10/19. Patient now status post 2 weeks of dual therapy with Levaquin and Merrem and ANC has now recovered. Notably,still some chance that all radiologic features are due to cancer and Pseudomonas is simply colonizing these chronic tracts , but can't put completely exclude infection. In addition, without debridement of mandible and abscesses, if infection present, it is not curable with out surgery,which based on prior conversations is not feasible due to progressive cancer --dc meropenem --continue levofloxacin, okay to change to per PEG tube, if aggressive therapy continued would tentatively plan 4-6 week course --continue contact isolation for past isolated MDR PsA microbiology 10/14Blood cultures ( 2): Negative 10/16 anterior mandibular Deep tract aspirate : rare Pseudomonas 10/16 posterior mandibular Deep tract aspirate :negative to date 10/19 blood cultures ( 2): Pending Subjective: minimal pain no specific c/o Objective: Vital Signs Temp Pulse Resp BP Pulse Ox 36.6 C 97 18 122/60 H 96 10/21/16 07:33 10/21/16 07:33 10/21/16 07:33 10/21/16 07:33 10/21/16 07:33 Microbiology 10/16/16 14:29 Gram Stain - Final Other - Other 10/16/16 14:32 Gram Stain - Final Other - Other 10/14/16 23:15 Blood Culture - Final Blood 10/14/16 18:30 Blood Culture - Final Blood Laboratory Results 10/21/16 05:39 10/21/16 05:39 10/20/16 10/21/16 10/22/16 05:59 05:59 05:59 Intake Total 1500 3772 Output Total 2150 2000 Balance -650 1772 - Physical Exam General Appearance: alert, other (Redness left face and submental and left neck , 2 tracts remain on the left side with purulent drainage) Respiratory: lungs clear, No accessory muscle use Neck: other (trach site with some mild irritation surrounding) Cardiac/Chest: regular rate, rhythm, systolic murmur Extremities: No pedal edema Abdomen: non-tender, soft, other (Feeding tube in place) Male Genitalia: No pandey Skin: rash (radiation changes L face) Neuro/Psych: alert, normal mood/affect ICD10 Worksheet Patient Problems: Problems Problem Status Diagnosed Alveolar adenocarcinoma Acute
[2016-10-21] MEDS: FILGRASTIM-SNDZ 300 MCG/0.5 ML SYR SC SCH (14:01)
--- NOTE | 2016-10-21 14:21 | WOCRNPDOC ---
WOCRN Advanced Assessment Note - Skin Integrity Problem, Advanced Assess Coccyx Pressure Injury Dressing Type: Allevyn Life Dressing Description: Clean/Dry, Intact Exudate Amount: Scant Exudate Color: Brown Exudate Characteristic(s): Serosanguinous Integumentary Issue Intervention: Visualized Under Dressing Elba Wound Tissue: Blanching, Erythema Elba Wound Swelling: None Wound Bed Color: Red Wound Bed Constitution: Granulation Tissue, Smooth Tissue Wound Edges: Epithelizing Site Odor: None Site Measurement - Head-to-Toe Length X Width X Depth (cm): 0.4cmx0.4cmx0.1cm Pressure Injury Stage: Stage 3 Pressure Injury Present on Admit: Yes Skin Integrity Problem Comment: Small, healing pressure injury to the R of patient's coccyx, w/ pinpoint granulation medially and the remaining wound bed smooth tissue w/ epthelializing margins. Elba-wound skin is intact and blanching. Site improved since previous assessment, and patient reports it is not as sore. Continue w/ tx of protective dressing and off-loading site.
[2016-10-21] MEDS: ONDANSETRON 4 MG/2 ML VIAL IVP PRN (14:35)
--- NOTE | 2016-10-21 15:03 | HOSPPROG ---
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 with: - Left submandibular abscess with associated osteomyelitis with cultures growing Pseudomonas, Klebsiella, Enterobacter, MSSA - continue levofloxacin to complete 6 weeks of treatment per ID - resolved neutropenic fever - continue Granix -head neck cancer with recent radiation and chemotherapy - continue care per med onc and Radiation Oncology -tracheostomy, with ongoing cough and significant respiratory secretions -chronic low back pain -dysphagia, being treated by speech language pathology -pancytopenia from chemotherapy disposition: Patient is interested in a palliative Care consultation which I ordered. The patient's is reluctant to make any end of life decisions at this time. The patient does make it pretty clear that he does not " want to live like this". Will continue with radiation for now. Plan for possible dc 10/22 once home care arrangements are in place Subjective: pain controlled. no fevers. no new complaints Objective: Vital Signs Temp Pulse Resp BP Pulse Ox 36.6 C 88 18 106/60 99 10/21/16 12:00 10/21/16 12:00 10/21/16 12:00 10/21/16 12:00 10/21/16 12:00 Microbiology 10/16/16 14:32 Gram Stain - Final Other - Other 10/16/16 14:29 Gram Stain - Final Other - Other Laboratory Results 10/21/16 05:39 10/21/16 05:39 10/20/16 10/21/16 10/22/16 05:59 05:59 05:59 Intake Total 1500 3772 Output Total 2150 2000 500 Balance -650 1772 -500 PT 14.3 SEC (12.0-15.0) 10/15/16 06:00 INR 1.12 (0.83-1.16) 10/15/16 06:00 - Physical Exam Constitutional: no apparent distress, appears nourished, not in pain Cardiovascular: regular rate and rhythym, no murmur, rub, or gallop Respiratory: no respiratory distress, no rales or rhonchi, clear to auscultation Gastrointestinal: normoactive bowel sounds, soft, non-tender abdomen, no palpable masses ICD10 Worksheet Patient Problems: Problems Problem Status Diagnosed Alveolar adenocarcinoma Acute
--- NOTE | 2016-10-21 15:39 | SOAPPROG ---
SOAP Progress Note Assessment/Plan: Assessment: 1) Locally recurrent head and neck cancer 2) Left submandibular abcess with associated osteomyelitis 3) Wound cx positive for pseudomonas 4) Neutropenia secondary to recent chemotherapy (resolved following Granix) Plan: I met with patient, patient's . Patient's daughter in law was present by phone. We discussed his situation at length. I relayed Chris's wish to stop treatment to his family members. Chris indicated to his family that he was tired and feels that he has a poor quality of life. He indicated his wish to stop treatment to his family. He declined radiation therapy today. His and daughter in law had multiple questions about therapy options. I indicated to them that Chris's disease is not curable, and that it is unlikely that further therapy will result in a meaningful improvement in his quality of life. His did not seem initially supportive of Chris's wish to stop treatment, but indicated that she would ultimately respect his decision. Chris and his family would also like to discuss things with Radiation Oncology and ID. This is being arranged. We also discussed the fact that he may have active deep tissue infection that could only be addressed by surgery, which is currently not an option. I indicated that Hospice care may be the best option at this point, especially in light of Chris's wish to stop therapy. At the end of my 45 minute family meeting, no definitive plan was made. They would like to talk as a family before making a final decision. I will stop his Granix now that his neutrophil count has recovered. Above discussed with nursing and care team. 10/20/16 08:30 10/21/16 15:31 10/21/16 15:40 Subjective: No change in clinical status. Family meeting held today. Patient declined radiation today. Objective: Vital Signs Temp Pulse Resp BP Pulse Ox 36.6 C 88 18 106/60 99 10/21/16 12:00 10/21/16 12:00 10/21/16 12:00 10/21/16 12:00 10/21/16 12:00 Microbiology 10/16/16 14:32 Gram Stain - Final Other - Other 10/16/16 14:29 Gram Stain - Final Other - Other Laboratory Results 10/21/16 05:39 10/21/16 05:39 10/20/16 10/21/16 10/22/16 05:59 05:59 05:59 Intake Total 1500 3772 Output Total 2150 1999 500 Balance -650 1772 -500 PT 14.3 SEC (12.0-15.0) 10/15/16 06:00 INR 1.12 (0.83-1.16) 10/15/16 06:00 - Time Spent With Patient Time Spent With Patient: 45 minutes ICD10 Worksheet Patient Problems: Problems Problem Status Diagnosed Alveolar adenocarcinoma Acute
[2016-10-21] MEDS: NEXIUM 22.3 MG TUBE SCH (17:59)
[2016-10-21] MEDS ORDERED: PANTOPRAZOLE SODIUM 40 MG in NS 100 ML IV SCH (20:30)
--- NOTE | 2016-10-21 20:30 | PDPCPN ---
Palliative Care Progress Note Assessment/Plan: Referring provider: Dr Carpio Reason for consult: Complex medical decision making Symptom control HPI: Chris Mobley is a 76 yo a male with H squamous cell carcinoma dx 06/2016 with prolonged hospitalization at OSH for infection and abscess admitted to the hospital with malaise and neutropenia. Found to ave left submandibular abscess on antibiotics. Neutropenic fever resolved. On chronic trach and peg. Palliative care consulted for complex medical decision making. Met with Chris and his Nadia at the bedside. Chris spoke about how tired he is with where he is at with his current physical status. He values quality of life. He and his used to love being active outdoors skiing and traveling. He feels now being quite physically dependent he has no quality of life. He would want treatments to extend his life if it meant his quality would improve. He feels that whether it is 1 month or 1 year if his quality does not improve, life prolongation does not matter. His spoke of the quickness of his dx and how they are hoping radiation will not only extend his life but also improve the quality. They do not feel like they have enough information to make an informed decision about whether to continue radiation or not. They specifically would like to ask Dr Pak what his thoughts are on radiation improving quality of life. They understand his cancer is not curable. We did start discussions of comfort care and what that might look like. Chris is very afraid of any increasing pain especially as radiation continues. Assessment: Physical: - Pain: mouth and facial pain - has magic mouthwash- RN to apply as unable to swish/swallow - can consider lidocaine ointment to face to help with neuropathic pain component - cannot apply any lotion 4 hours prior to radiation - on gabapentin 100 mg BID francisco - takes oxy 5mg BID scheduled at home -Oral secretions - on scop patch - tolerating - if mouth is too dry discontinue scop patch - has biotene available if needed - constipation - monitor with opiate use - would use senna liquid and colace liquid scheduled Emotional/psychological: Advanced Care Planning: Is patient decisional?: Yes Code Status: Full- will readdress POA: Nadia is MDPOA. Plan: Meeting with ID and radiation scheduled for at 3:30 pm. Chris would like to return back home, has [facility] and looking into private duty caregivers to help. Subjective: I have some mouth pain Objective: Social History: to Nadia. 3 children involved. 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 Medication list reviewed ROS: General: fatigue, weakness, weight loss ENT: mouth pain, dysphagia Resp: cough GI: negative. G tube for feedings : negative MS: left facial pain Skin: wound on left face Neuro: negative Psych: negative Functional assessment: PPS: 50% Functional status: needs assistance with most ADLs Vital Signs Temp Pulse Resp BP Pulse Ox 36.7 C 85 16 116/62 94 10/21/16 19:48 10/21/16 19:48 10/21/16 19:48 10/21/16 19:48 10/21/16 19:48 Microbiology 10/16/16 14:32 Gram Stain - Final Other - Other 10/16/16 14:29 Gram Stain - Final Other - Other Laboratory Results 10/21/16 05:39 10/21/16 05:39 10/20/16 10/21/16 10/22/16 05:59 05:59 05:59 Intake Total 1500 3772 1572 Output Total 2150 2000 1100 Balance -650 1772 472 PT 14.3 SEC (12.0-15.0) 10/15/16 06:00 INR 1.12 (0.83-1.16) 10/15/16 06:00 Physical Exam - Physical Exam General Appearance: alert, no apparent distress Respiratory: other (trach), No respiratory distress, No accessory muscle use Skin: normal color, warm/dry Extremities: No pedal edema Neuro/Psych: alert, oriented x 3 ICD10 Worksheet Patient Problems: Problems Problem Status Diagnosed Alveolar adenocarcinoma Acute Palliative care encounter Acute - ICD10 Problem Qualifiers (1) Palliative care encounter
[2016-10-21] MEDS: TEMAZEPAM 15 MG CAP TUBE PRN (22:11)
[2016-10-22] MEDS: NS 1,000 ML IV SCH (00:30)
[2016-10-22] MEDS: FLUCONAZOLE 100 MG TAB TUBE SCH (08:08)
[2016-10-22] MEDS: GUAIFENESIN/DM 10 ML UDCUP TUBE SCH ×2 (08:08→20:40)
[2016-10-22] MEDS: GABAPENTIN 100 MG CAP TUBE SCH ×2 (08:08→20:40)
[2016-10-22] MEDS: ACYCLOVIR 200 MG CAP TUBE SCH ×2 (08:08→20:40)
[2016-10-22] MEDS: oxyCODONE ORAL SOLUTION 10 MG/0.5 ML UDSYR TUBE SCH ×2 (08:08→20:40)
[2016-10-22] MEDS: SCOPOLAMINE HYDROBROMIDE 1.5 MG PATCH TD SCH (08:08)
[2016-10-22] MEDS: AQUAPHOR OINTMENT 3.5 OZ JAR TP SCH ×2 (08:21→20:41)
--- NOTE | 2016-10-22 09:23 | PCMIDPN ---
Assessment/Plan: # Possible left submandibular abscess and mandibular osteomyelitis, deep wound cultures (via existing tracts) show rare Pseudomonas best susceptible. Past isolates showed more resistance. Suspect heterogeneous bacterial population. ANC now greater than 4000. No further fever since 10/19. --change Levaquin to feeding tube, antibiotic day 15 # Locally recurrent head and neck cancer : Patient expressing desire to stop radiation microbiology 10/14 Blood cultures ( 2): Negative 10/16 anterior mandibular Deep tract aspirate : rare Pseudomonas 10/16 posterior mandibular Deep tract aspirate :negative to date 10/19 blood cultures ( 2): NGTD Subjective: Patient expresses persistent discomfort associated with trach, otherwise no pain Tells me that he wants to stop radiation but that his family is hesitant with this decision Objective: Vital Signs Temp Pulse Resp BP Pulse Ox 35.9 C L 102 H 20 108/62 93 10/22/16 07:52 10/22/16 07:52 10/22/16 07:52 10/22/16 07:52 10/22/16 07:52 Microbiology 10/16/16 14:32 Gram Stain - Final Other - Other 10/16/16 14:29 Gram Stain - Final Other - Other Laboratory Results 10/21/16 05:39 10/21/16 05:39 10/21/16 10/22/16 10/23/16 05:59 05:59 05:59 Intake Total 3772 1572 1547 Output Total 1999 1900 300 Balance 1772 -328 1247 General Appearance: alert, Redness left face and submental and left neck, 2 tracts remain on the left side with purulent drainage Respiratory: lungs clear, No accessory muscle use Neck: trach site with some mild irritation surrounding Cardiac/Chest: tachy, systolic murmur Extremities: No pedal edema Abdomen: non-tender, soft, Feeding tube in place Male Genitalia: No pandey Skin: rash - radiation changes L face Neuro/Psych: alert, normal mood/affect, tearful at times ICD10 Worksheet ICD10 Worksheet Patient Problems: Problems Problem Status Diagnosed Alveolar adenocarcinoma Acute Palliative care encounter Acute
[2016-10-22] MEDS ORDERED: ACETAMINOPHEN 325 MG TAB TUBE PRN (09:32)
--- NOTE | 2016-10-22 15:18 | HOSPPROG ---
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 with: - Left submandibular abscess with associated osteomyelitis with cultures growing Pseudomonas, Klebsiella, Enterobacter, MSSA - continue levofloxacin to complete 6 weeks of treatment per ID - resolved neutropenic fever -head neck cancer with recent radiation and chemotherapy - continue care per med onc and Radiation Oncology -tracheostomy, with ongoing cough and significant respiratory secretions -chronic low back pain -dysphagia, being treated by speech language pathology -pancytopenia from chemotherapy (improved) disposition: possible dc 2/2 Subjective: no new complaints Objective: Vital Signs Temp Pulse Resp BP Pulse Ox 36.4 C 93 18 118/60 98 10/22/16 11:08 10/22/16 11:08 10/22/16 11:08 10/22/16 11:08 10/22/16 11:08 Microbiology 10/16/16 14:32 Gram Stain - Final Other - Other 10/16/16 14:29 Gram Stain - Final Other - Other Laboratory Results 10/21/16 05:39 10/21/16 05:39 10/21/16 10/22/16 10/23/16 05:59 05:59 05:59 Intake Total 3772 1572 1547 Output Total 1999 1900 1100 Balance 1772 -328 447 PT 14.3 SEC (12.0-15.0) 10/15/16 06:00 INR 1.12 (0.83-1.16) 10/15/16 06:00 - Physical Exam Constitutional: no apparent distress, appears nourished, not in pain Cardiovascular: regular rate and rhythym, no murmur, rub, or gallop Respiratory: no respiratory distress, no rales or rhonchi, clear to auscultation Gastrointestinal: normoactive bowel sounds, soft, non-tender abdomen, no palpable masses Neurologic: AAOx3, sensation intact bilaterally ICD10 Worksheet Patient Problems: Problems Problem Status Diagnosed Alveolar adenocarcinoma Acute Palliative care encounter Acute
[2016-10-22] MEDS: MBX SOLN 30 ML BOTTLE PO SCH ×2 (17:22→20:42)
[2016-10-22] MEDS ORDERED: LANSOPRAZOLE SUSP 30MG/10ML UDSYR (Adult) TUBE SCH (18:00)
[2016-10-22] MEDS: TEMAZEPAM 15 MG CAP TUBE PRN (22:00)
[2016-10-23] MEDS: MBX SOLN 30 ML BOTTLE PO SCH ×2 (07:31→12:02)
[2016-10-23] MEDS: ONDANSETRON 4 MG/2 ML VIAL IVP PRN (09:43)
[2016-10-23] MEDS: AQUAPHOR OINTMENT 3.5 OZ JAR TP SCH (09:51)
[2016-10-23 10:20] LABS: ABSOLUTE NRBC COUNT 0.02 10^3/uL (0-0.01); ADD DIFF? YES; ADD MORPH? NO; ATYPICAL LYMPHOCYTE FLAG 0 (0-99); FRAGMENT RBC FLAG 0 (0-99); HEMATOCRIT 22.3 % (40.0-51.0); HEMOGLOBIN 7.8 g/dL (13.7-17.5); LIPEMIA HEMOLYSIS FLAG 90 (0-99); MEAN CELL HEMOGLOBIN 30.6 pg (27.9-34.1); MEAN CELL VOLUME 87.5 fL (81.5-99.8); MEAN PLATELET VOLUME 10.6 fL (8.7-11.7); NRBC-AUTO% 0.8 % (0.0-0.2); PLATELET CLUMPS FLAG 0 (0-99); RED BLOOD CELL COUNT 2.55 10^6/uL (4.40-6.38); RED CELL DISTRIBUTION WIDTH 13.8 % (11.5-15.2)
[2016-10-23 10:21] LABS: ADD SCAN? NO; LEFT SHIFT FLG 270 (0-99); PLATELET COUNT 42 10^3/uL (150-400)
[2016-10-23 10:47] LABS: ANION GAP 4 mEq/L (8-16); CALCIUM 7.8 mg/dL (8.5-10.4); CARBON DIOXIDE 27 mEq/l (22-31); CHLORIDE 104 mEq/L (97-110); CREATININE 0.5 mg/dL (0.7-1.3); GLOMERULAR FILTRATION RATE > 60; GLUCOSE 165 mg/dL (70-100); POTASSIUM 4.1 mEq/L (3.5-5.2); SODIUM 135 mEq/L (134-144)
[2016-10-23 10:51] LABS: TOXIC GRANULATION PRESENT
[2016-10-23 10:54] LABS: MICROCYTES 1+; PLATELET ESTIMATE DECREASED (ADEQ); POLYCHROMASIA 1+
[2016-10-23] MEDS: GUAIFENESIN/DM 10 ML UDCUP TUBE SCH (11:40)
[2016-10-23] MEDS: GABAPENTIN 100 MG CAP TUBE SCH (11:41)
[2016-10-23] MEDS: ACYCLOVIR 200 MG CAP TUBE SCH (11:42)
[2016-10-23] MEDS: FLUCONAZOLE 100 MG TAB TUBE SCH (11:42)
[2016-10-23] MEDS: oxyCODONE ORAL SOLUTION 10 MG/0.5 ML UDSYR TUBE SCH (11:43)
[2016-10-23 12:10] VITALS: BP 110/50; PULSE 97; RESP 16; TEMP 97.7; O2SAT 95
--- NOTE | 2016-10-23 12:26 | PDIAF ---
- Diagnosis Diagnosis: squamous cell carcinoma Code Status: Full Code - Medication Management Discharge Medications: Medications to Continue on Transfer Simvastatin [Zocor 20 mg] 20 mg PO DAILY18 10/03/12 [Last Taken 10/13/16] Acyclovir [Zovirax 200 mg (*)] 200 mg TUBE BID 10/14/16 [Last Taken 10/14/16] Gabapentin [Neurontin 100 MG (*)] 100 mg TUBE BID 10/14/16 [Last Taken 10/14/16] Gluc Oxid/l-Peroxid/Muramidase [Biotene Mouthwash (*)] 20 ml MM PRN PRN [Last Taken Unknown] Magic Mouthwash 10 - 20 ml MM PRN PRN 10/14/16 [Last Taken Unknown] Ondansetron Odt [Zofran Odt 4 mg (*)] 8 mg PO BID PRN 10/14/16 [Last Taken 10/14] Prochlorperazine Maleate [Compazine 10mg (*)] 10 mg TUBE BID PRN 10/14/16 [Last Taken Unknown] Radiation Chemo 0 mg DAILY@1415 10/14/16 [Last Taken 10/14/16] Scopolamine Hydrobromide [Transderm-Scop] 1.5 mg TD Q72H 10/14/16 [Last Taken ] guaiFENesin/DEXTROMETHORPHAN [Robitussin Dm Oral Liquid (*)] 20 ml TUBE BID [Last Taken 10/14/16] oxyCODONE ORAL SOLUTION [Roxicodone Intensol] 5 mg TUBE BID PRN 10/14/16 [Last Taken 10/14/16] Acetaminophen [Tylenol 325mg (*)] 650 mg TUBE Q4HRS PRN #0 tab 10/23/16 [Last Taken Unknown] Esomeprazole Magnesium [Nexium] 40 mg PO AC@18 #30 capsule. 10/23/16 [Last Taken Unknown] Fluconazole [Diflucan (*)] 100 mg TUBE DAILY #14 tab 10/23/16 [Last Taken Unknown] Mineral Oil/Pet Hy-Phl [Aquaphor Ointment (*)] 1 inga TP BID@08,20 #0 jar [Last Taken Unknown] Temazepam [Restoril 15 MG (*)] 15 mg TUBE HS PRN #10 cap 10/23/16 [Last Taken Unknown] levOFLOXACIN [levAQUIN (*)] 750 mg TUBE DAILY AT 10AM #14 tab 10/23/16 [Last Taken Unknown] Discharge Medications: Refer to the Discharge Home Medication list for PRN reason. - Orders Services needed: Home Care, Registered Nurse, Physical Therapy, Occupational Therapy Home Care Face to Face: I certify that this patient was under my care and that I had the required [id number] encounter meeting the encounter requirements on the discharge day. My findings support the fact that the patient is homebound as defined in CMS Chapter 7 Medicare Benefits Manual 30.1.1, The condition of the patient is such that there exists a normal inability to leave home and consequently, leaving home would require a considerable and taxing effort. Diet Texture: Dysphagia 1 - Pureed, Thin Liquids, Non Oral Meds - Follow Up Care Current Providers and Referrals: Patient,NotPresent [Primary Care Provider] -
--- NOTE | 2016-10-23 15:43 | GDS ---
[f rep st] DISCHARGE SUMMARY DISCHARGE DIAGNOSES: 1. Left submandibular abscess with associated osteomyelitis in the setting of recurrent squamous tiffanie l carcinoma of the head and neck. 2. Resolved neutropenic fever. 3. Tracheostomy. 4. Chronic low back pain. 5. Dysphagia. 6. Oral candidiasis. CONSULTANTS: 1. [facility]. 2. ENT, Dr. Domenica Saavdera. 3. Wound Care. 4. [facility]. 5. Palliative Care Medicine. HOSPITAL COURSE AND STAY BY PROBLEM: 1. Left submandibular abscess and mandibular osteomyelitis: Patient underwent a mandibular aspirate on 10/16/2016, which did reveal Pseudomonas. He was subsequently treated with IV levofloxacin and m eropenem, which have since been changed to levofloxacin all alone. Patient had febrile neutropenia o n initial presentation and was given Granix. His neutrophil count has since recovered. Throughout t he patient's hospital stay, he has been receiving radiation treatment and there was some talk about c ontinuing chemotherapy. The patient did express his wishes to stop treatment. Palliative Care was o rdered and now the patient plans to be discharged home with home care and possibly hospice, but this has yet to be finalized. 2. Oral candidiasis: Patient will be treated with 10 days of fluconazole. Which will end 2 days aft er discharge. PHYSICAL EXAM ON DAY OF DISCHARGE: VITAL SIGNS: Blood pressure 110/58, pulse 97, respiratory rate 1 6, O2 sat 95% on room air, temperature afebrile. GENERAL: In no acute distress. HEART: S1, S2. L UNGS: Clear. PROCEDURES DONE THIS HOSPITAL STAY: Abscess drainage done via ultrasound by Dr. Cynthia Sol on 7. Video swallow study done 10/17/2016 was negative for aspiration. There is mild oral and pharynge al dysphagia resulting in vallecular residue. DISCHARGE MEDICATIONS: Please refer to discharge medication reconciliation in [employer]. New medications on hospital discharge: Levofloxacin to complete 4 weeks of treatment to be managed malachi Doty. All other home medications were continued at the usual dosages. DISCHARGE INSTRUCTIONS: The patient will be discharged home with home care, where he is to follow up with Dr. Regalado, Dr. Pak, and Dr. Doty for further care. /[id number]/MODL
--- NOTE | 2016-10-23 17:10 | PDPCPN ---
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 Found to ave left submandibular abscess on antibiotics. Neutropenic fever resolved. On chronic trach and peg. Palliative care consulted for complex medical decision making. Met with Dr Doty, Dr Pak, Lilo malik, Corrie MEADE and family including Chris, his Nadia and their 2 sons at [facility]. Spoke at length about prognosis and what to expect with his cancer. Dr Pak shared that it appears his cancer is aggressive in that it grew back rapidly after each surgery. He believes the radiation is helping shrink the cancer but states it will grow back again and unsure how much radiation is affecting his quality of life. Dr Pak was able to share what to expect from radiation going forward. Chris was able to share with his family his current poor quality of life and wishes for "it to end sooner rather than later". chris and his family are planning on discussing privately over the weekend his goals to continue or stop radiation treatments. They are interested in speaking with their physician [facility] in more details about exactly what to expect with Chris's specific type of cancer. Assessment: Physical: - Pain: mouth and facial pain - has magic mouthwash- RN to apply as unable to swish/swallow - can consider lidocaine ointment to face to help with neuropathic pain component - cannot apply any lotion 4 hours prior to radiation - on gabapentin 100 mg BID francisco - takes oxy 5mg BID scheduled at home -Oral secretions - on scop patch - tolerating - if mouth is too dry discontinue scop patch - has biotene available if needed - constipation - monitor with opiate use - would use senna liquid and colace liquid scheduled Emotional/psychological: Advanced Care Planning: Is patient decisional?: Yes Code Status: Full MD POA: Nadia is MDPOA. Plan: Home with [facility] today. Chris is planning on radiation tomorrow and will continue to discuss with his family his preference for continuing radiation or not. He feels he would rather have a shorter time then prolonged life expectancy with poor quality. Subjective: My mouth is sore Objective: Vital Signs Temp Pulse Resp BP Pulse Ox 36.5 C 97 16 110/50 L 95 10/23/16 12:00 10/23/16 12:10/23/16 12:00 10/23/16 12:00 10/23/16 12:00 Microbiology 10/16/16 14:32 Gram Stain - Final Other - Other Anaerobic Culture - Final 10/16/16 14:29 Gram Stain - Final Other - Other Anaerobic Culture - Final Pseudomonas Aeruginosa Laboratory Results 10/23/16 10:05 10/23/16 10:05 10/22/16 10/23/16 10/24/16 05:59 05:59 05:59 Intake Total 1572 4479 Output Total 1900 2850 900 Balance -328 1629 -900 PT 14.3 SEC (12.0-15.0) 10/15/16 06:00 INR 1.12 (0.83-1.16) 10/15/16 06:00 Physical Exam - Physical Exam General Appearance: alert, no apparent distress Neck: other (trach) Respiratory: decreased breath sounds, No respiratory distress, No accessory muscle use Skin: normal color, warm/dry Extremities: No pedal edema Neuro/Psych: alert, oriented x 3 ICD10 Worksheet Patient Problems: Problems Problem Status Diagnosed Alveolar adenocarcinoma Acute Palliative care encounter Acute - ICD10 Problem Qualifiers (1) Palliative care encounter
== END 2016-10-23 15:00 | disposition home health service (06) | DRG 157 ==
LOC: F1N 16:25 → EEVIPCON 18:37 → OBSVTOIN 18:37
PROVIDERS: ADMIT Internal Medicine; ATTEND Family Medicine
PROC: 0HB1XZX Excision of Face Skin, External Approach, Diagnostic (ICD-10-PCS; principal; 2016-10-16)
DX: K12.2 Cellulitis and abscess of mouth (principal); B96.5 Pseudomonas (aeruginosa) (mallei) (pseudomallei) as the cause of diseases classified elsewhere; D61.810 Antineoplastic chemotherapy induced pancytopenia; M86.9 Osteomyelitis, unspecified; C41.1 Malignant neoplasm of mandible; C76.0 Malignant neoplasm of head, face and neck; D70.9 Neutropenia, unspecified; R13.10 Dysphagia, unspecified; B37.0 Candidal stomatitis; Z51.5 Encounter for palliative care; Z93.0 Tracheostomy status; Z93.1 Gastrostomy status
CPT/HCPCS: 92526-GN; 92610-GN; 92611-GN; 97110-GP; 97116-GP; 97161-GP; 97165-GO; 97530-GO; 97530-GP; 97535-GO; G8978-GP-CJ; G8979-GP-CK; G8987-GO-CK; G8988-GO-CI; G8996-GN-CK; G8996-GN-CM; G8997-GN-CJ; G8997-GN-CK; J1170; J1956; J2185; J2405; J3370; P9016; P9035; Q5101-ZA; Q9967